=== PATIENT | male | born 1950 | race Caucasian/White ===

== ENCOUNTER 2023-06-24 12:19 | Outpatient (RCR) | payer MEDICARE, OTHER, SELFPAY | END 2023-06-24 23:59 | disposition home or self-care (01) | LOC: RPT 12:19 | PROVIDERS: ATTENDING PHYSICIAN Nurse Practitioner; FAMILY PHYSICIAN Family Medicine | DX: M54.2 Cervicalgia (principal); Z73.6 Limitation of activities due to disability; M62.81 Muscle weakness (generalized); R51.9 Headache, unspecified | CPT/HCPCS: 97162 ==

== ENCOUNTER 2023-07-10 14:06 | Outpatient (RCR) | payer MEDICARE, OTHER, SELFPAY | END 2023-07-16 13:50 | disposition home or self-care (01) | LOC: RPT 14:06 | PROVIDERS: ATTENDING PHYSICIAN Nurse Practitioner; FAMILY PHYSICIAN Family Medicine | DX: M54.2 Cervicalgia (principal); Z73.6 Limitation of activities due to disability | CPT/HCPCS: 97010; 97110; 97140 ==

== ENCOUNTER → 2023-08-27 07:11 | Outpatient (REF) | payer MEDICARE, OTHER, SELFPAY ==
[2023-08-27 07:36] LABS: % Eosinophils 4.5 % (0-6); % Immature Granulocytes 0.3 % (0-0.5); % Lymphocytes 25.6 % (20.5-51.1); % Monocytes 6.9 % (1.7-9.3); % Neutrophils 61.7 % (42.2-75.2); Absolute Basophils 0.1 10^3/uL (0-0.2); Absolute Eosinophils 0.3 10^3/uL (0-0.7); Absolute Lymphocytes 1.8 10^3/uL (1.2-3.4); Absolute Monocytes 0.5 10^3/uL (0.1-0.6); Absolute Neutrophils 4.2 10^3/uL (1.4-6.5); Hematocrit 37.2 % (39.0-52.0); Hemoglobin 12.2 g/dL (13.0-18.0); Mean Corp Hgb Conc. 32.8 g/dL (33.0-37.0); Mean Corpuscular Hgb 29.2 pg (27.0-31.0); Mean Platelet Volume 10.3 fL (7.4-10.4); Nucleated Red Blood Cells % 0 % (-); Platelet Count 278 10^3/uL (130-400); Red Blood Cell Count 4.18 10^6/uL (4.70-6.10); Red Cell Dist. Width 14.1 % (11.5-14.5); White Blood Cell Count 6.8 10^3/uL (4.8-10.8)
[2023-08-27 08:02] LABS: ALT (SGPT) 27 U/L (0-50); AST (SGOT) 30 U/L (17-59); Albumin 4.4 g/dl (3.5-5.0); Alkaline Phosphatase 86 U/L (38-126); Blood Urea Nitrogen 22 mg/dl (9-20); Calcium 9.3 mg/dl (8.4-10.2); Carbon Dioxide 26 mmol/L (22-30); Chloride 104 mmol/L (98-107); Glucose 125 mg/dl (70-99); Iron 60 ug/dl (49-181); Potassium 4.9 mmol/L (3.5-5.1); Sodium 137 mmol/L (135-145); Total Bilirubin 0.5 mg/dl (0.2-1.3); Total Cholesterol 149 mg/dl (50-199); Total Protein 7.6 g/dl (6.3-8.2); Triglyceride 160 mg/dl (10-149); Uric Acid 4.9 mg/dl (3.5-8.5); Very Low Density Lipoprotein 32 mg/dl (0-30); eGFR 37.02
[2023-08-27 08:03] LABS: HDL Cholesterol 53 mg/dl; LDL Cholesterol, Calculated 64 mg/dl
[2023-08-27 08:11] LABS: Percent Saturation 18 % (20-50); Total Iron Binding Capacity 331 ug/dl (261-462)
[2023-08-27 09:49] LABS: Glycohemoglobin (HgbA1c) 6.5 % (4.0-5.6)
== END ==
LOC: REG 07:11
PROVIDERS: ATTENDING PHYSICIAN Nurse Practitioner; FAMILY PHYSICIAN Family Medicine
DX: M25.531 Pain in right wrist (principal); E11.29 Type 2 diabetes mellitus with other diabetic kidney complication; N18.32 Chronic kidney disease, stage 3b; D50.9 Iron deficiency anemia, unspecified; E78.5 Hyperlipidemia, unspecified
CPT/HCPCS: 36415; 80053; 80061; 83036; 83540; 83550; 84550; 85025

== ENCOUNTER 2023-09-05 06:52 | Outpatient (RCR) | payer SELFPAY | END 2023-09-05 23:59 | disposition home or self-care (01) | LOC: ROT 06:52 | PROVIDERS: ATTENDING PHYSICIAN Family Medicine | DX: Z02.4 Encounter for examination for driving license (principal) ==

== ENCOUNTER 2023-10-07 10:29 | Inpatient (IN) | payer MEDICARE, OTHER, SELFPAY ==
[2023-10-07] VITALS (13 sets, daily range): BP systolic 122–186; BP diastolic 57–148; BMI 36.9
--- NOTE | 2023-10-07 08:56 | ED.GENMED ---
History of Present Illness
General
Chief Complaint: Change in Mental Status
Source: patient, spouse and ambulance crew
Exam Limitations: none
Time Seen by Provider: 10/07/23 08:40
Nursing documentation reviewed up to this point in time: agreed with
Travel History
Have you had any contact with someone who has COVID-19?: No
Do you have any symptoms of coronavirus? Fever > 100 degrees, chills, cough, shortness of breath, sore throat, loss of taste or smell, muscle aches, or headache?: No
History of Present Illness
History of Present Illness:
The patient is a 73-year-old man with a past medical history of high blood pressure, diabetes, high cholesterol, TIAs and mild memory issues, who presents by paramedics after his found him unresponsive and drooling in bed. His reports
that he woke up as normal, ate breakfast, showered and took his morning medication. She reports that he went back to bed to nap which is not unusual for him. When she went to check up on him, he was face down, lying in bed, drooling and difficult
to wake up. Patient reports that he was able to get him to open his eyes but he did not seem alert and was not speaking for several minutes. When paramedics arrived, patient started to talk and answer questions. Patient reports he just feels
extremely tired and has no memory of what happened. He keeps asking over and over how he got here. Patient denies any history of seizure disorder. Patient complains of mild headache since yesterday. He denies weakness and numbness. His
reports that in the past he has presented with mini strokes which have caused his balance to be off. Patient denies history of recent chest pain and shortness of breath. He denies recent cough and sore throat.
Past History
Past History
ED Past Medical History: HTN, Hypercholesterolemia, NIDDM, Psychiatric (Anxiety, Dementia) and Other (Anemia, diabetes, posterior reversible encephalopathy syndrome December 2020)
ED Past Surgical History: Orthopedic and Tonsilectomy
Social History
Tobacco: Former smoker
Alcohol: Former
Drug: None
Personal:
Living: with family
Employment: Employed
Family History
Family History: Other (Arthritis)
Review of Systems
Review of Systems
Allergies reviewed?: Yes
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
All Other Systems: ROS reviewed and negative except as documented in HPI and ROS
Constitutional: Reports fatigue
EENT: Reports no symptoms
Respiratory: Reports no symptoms
Cardiac: Reports syncope (Possible syncope)
ABD/GI: Reports no symptoms
: Reports no symptoms
Musculoskeletal: Reports no symptoms
Skin: Reports no symptoms
Neurological: Reports other
Endocrine: Reports no symptoms
Hematologic/Lymphatic: Reports no symptoms
Psychiatric: Reports no symptoms
Phy Exam
Physical Exam
Physical Exam:
Physical Exam
General: Patient appears awake, alert, but seems confused and keeps asking how he got here. Atraumatic appearing face and head.
Neck: supple. no meningeal signs. normal psoterior pharynx. Nontender C-spine
Heart: Tachycardic, regular
Lungs: no acute respiratory distress. clear bilaterally
Abdomen: normal bowel sounds. not tender. no CVAT
Neuro: alert and orientedx3. no focal neurological deficits. Face appears symmetric. Speech sounds normal. 5 out of 5 strength in bilateral extremities. No drift. Able to answer all questions
Skin: no rash
Psychiatric: well kept. interactive and cooperative
Extremities: no edema. no calf tenderness. negative homans. good distal pulses
Course
Orders/Labs/Results
Orders:
Orders
10/07/23
Electrocardiogram (*1) Stat
Comment: ALREADY DONE
10/07/23 08:41
CT Head W/o Iv Contrast Urgent
Comment:
Reason For Exam: increased confusion
Urinalysis Reflex To Culture Urgent
10/07/23 09:15
Complete Blood Count/With Diff Urgent
Comprehensive Metabolic Panel Urgent
Troponin I Urgent
10/07/23 10:01
Lorazepam [Ativan] 4 mg .ROUTE .STK-MED ONE
10/07/23 10:05
Lorazepam [Ativan] 2 mg IV NOW STA
10/07/23 10:20
Admit/Transfer Patient As Directed
Co-Sign Provider:
Level of Care: Inpatient admission
Assign to:: Telemetry
Physician / Group: Hospitalist
Diagnosis: Seizures
Reason for Telemetry: Medication for Arrhythmia
Date to Stop Telemetry: 10/09/23
Time to Stop Telemetry: 11:00
Reason for Hospitalization: .
Expected length of stay greater than two midnights?: Yes
ELOS- Estimated Length of Stay in days: 3
I certify the patient meets the requirements for IP care: Yes
10/07/23 10:21
Consult Neurology [NEUROLOGY CONSULT] Urgent
Consulting Provider: Luis Freeman
Was physician already notified: Yes
Reason for consult: seizure
10/07/23 10:22
CPK [Creatine Phosphokinase] Stat
Urine Drug Abuse Screen Stat
Lacosamide [Vimpat] 100 mg IV NOW STA
10/07/23 10:23
EEG Extend Monitor >1hr Routine
Reason for Exam: ? CPS
Neurology Consult:: DR. FREEMAN
10/07/23 20:00
Lacosamide [Vimpat] 100 mg IV Q12H
10/09/23 11:00
DC Protocol for Telemetry ONCE
Abnormal Lab Results
10/07/23
09:15
RBC 4.09 L 10^6/uL
(4.70-6.10)
Hgb 12.2 L g/dL
(13.0-18.0)
Hct 35.7 L %
(39.0-52.0)
Absolute Neuts (auto) 8.5 H 10^3/uL
(1.4-6.5)
Neutrophils % 80.3 H %
(42.2-75.2)
Lymphocytes % 11.8 L %
(20.5-51.1)
Sodium 131 L mmol/L
(135-145)
BUN 22 H mg/dl
(9-20)
Creatinine 1.8 H mg/dL
(0.7-1.3)
Glucose 154 H mg/dl
(70-99)
10/07/23 09:15
10/07/23 09:15
Vital Signs
Initial and Last Documented VS:
Initial Vital Signs
Temp Pulse Resp BP Pulse Ox
98.8 F 107 24 132/57 95
10/07/23 08:31 10/07/23 08:31 10/07/23 08:31 10/07/23 08:31 10/07/23 08:31
Last Documented Vital Signs
Temp Pulse Resp BP Pulse Ox
98.8 F 130 22 183/148 97
10/07/23 08:31 10/07/23 10:03 10/07/23 10:03 10/07/23 10:03 10/07/23 10:03
MDM/Problems Addressed
Differential Diagnosis Includes:
Syncope, postictal from seizure, hyponatremia, UTI
MDM/Problems Addressed:
Patient presents after being found unresponsive and more confused now by his
Chronic conditions affecting care: DM and HTN
Acute Exacerbation and/or Progression of Chronic Illness:
Patient is acutely hypertensive but only mildly
Acute Exacerbation and/or Progression of Chronic Illness: HTN
*Radiology
Radiology exam reviewed: radiology read reviewed
*Pulse Oximetry
Patient hypoxic: no
*EKG
Interpreted by ED Provider?: Yes
Interpretation: abnormal
Comparison EKG: no changes
Rate: tachycardiac
Rhythm: sinus
[place]: left axis deviation
Interval: normal interval
QRS Pattern: normal QRS
Ischemia: no ischemia
*Student Services Advisor Interpretation
Rate: bradycardiac
Interpretation: abnormal
Rhythm: sinus
*Critical Care Note
Total Time (30-74mins, 75-104mins- exclusive of procedures): 40 min
comment:
40 minutes of critical care given to the patient including my initial evaluation, reviewing blood work, CT report, EKG as well as supporting his airway while he sees in the ED, reassessing the patient, speaking to the hospitalist, neurologist and
counseling the family.
Data Reviewed
Review of Other/Old Records Reveals: Radiology Studies (MRI brain done in March 2022 showed no acute abnormalities and some chronic changes)
Patient Management
Discussion with other providers: Hospitalist and Other (Dr. Freeman)
Escalation/DeEscalation of care consider admission/obs:
Given recurrent seizures today, patient will be admitted for seizure management. Patient had a grand mal seizure in the ED witnessed by family and staff. Patient given 2 mg of Ativan and seizure subsided. Neurology and hospitalist made aware.
Patient maintaining his airway after being on nonrebreather and was suctioned.
ED Attending Note
-
Portions of this chart may have been created with voice recognition software.� Occasional wrong word or��sound alike� substitutions may have occurred due to the inherent limitations of voice recognition software.
Discharge Plan
Departure
Patient Disposition: Admit
Date of Disposition: 10/07/23
Time of Disposition: 10:23
Admit to: Telemetry
Presentation/result/management discussed w/ accepting MD/DO: Hospitalist
Patient with high blood pressure during this ER visit?: Yes
Condition: Fair
Covid-19: Not Applicable
Discharge Problem:
Post-ictal confusion, Recurrent seizures
Prescriptions:
No Action
atorvastatin 40 MG tablet
40 mg PO HS
aspirin 81 MG tablet,delayed release (DR/EC)
81 mg PO DAILY
allopurinol 300 MG tablet
300 mg PO DAILY
venlafaxine [Effexor XR] 150 MG capsule,extended release 24hr
150 mg PO DAILY
Patient Comments:
12/25/20- PT TAKES WITH VENLAFAXINE XR 75MG TO = 225MG DAILY
thiamine HCl (vitamin B1) 100 MG tablet
100 mg PO DAILY
cyanocobalamin (vitamin B-12) 1,000 MCG tablet
1,000 mcg PO DAILY 0RF
magnesium oxide 400 MG tablet
400 mg PO DAILY Qty: 60 0RF
risperidone 0.5 MG tablet
0.5 mg PO HS Qty: 30 0RF
prednisone 5 MG tablet
7.5 mg PO DAILY
Patient Comments:
Taper
spironolactone 25 MG tablet
25 mg PO DAILY
calcium carbonate 600 MG tablet
1,200 mg PO DAILY
cholecalciferol (vitamin D3) [Vitamin D3] 1,000 UNIT capsule
2,000 unit PO DAILY
amlodipine 5 MG tablet
5 mg PO DAILY
omeprazole 40 MG capsule,delayed release(DR/EC)
40 mg PO BID
Referrals:
Pillo Wilson MD [Family Provider] -
Interventions
Interventions:
*General Assessment Last Done: 10/07/23 08:39
*ED COVID-19 Vaccine History Last Done: 10/07/23 08:39
ED- Pulmonary Assessment Last Done: 10/07/23 08:39
ED- Neurological Assessment Last Done: 10/07/23 08:56
ED- Cardiac Assessment Last Done: 10/07/23 08:39
ED Swallowing Screen Last Done: 10/07/23 08:43
Discharge Date and Time
Print Language: SAMI
[2023-10-07 09:22] LABS: % Basophils 0.6 % (0-2); % Eosinophils 1.2 % (0-6); % Immature Granulocytes 0.4 % (0-0.5); % Lymphocytes 11.8 % (20.5-51.1); % Monocytes 5.7 % (1.7-9.3); % Neutrophils 80.3 % (42.2-75.2); Absolute Basophils 0.1 10^3/uL (0-0.2); Absolute Eosinophils 0.1 10^3/uL (0-0.7); Absolute Lymphocytes 1.2 10^3/uL (1.2-3.4); Absolute Monocytes 0.6 10^3/uL (0.1-0.6); Absolute Neutrophils 8.5 10^3/uL (1.4-6.5); Hematocrit 35.7 % (39.0-52.0); Hemoglobin 12.2 g/dL (13.0-18.0); Mean Corp Hgb Conc. 34.2 g/dL (33.0-37.0); Mean Corpuscular Hgb 29.8 pg (27.0-31.0); Mean Corpuscular Volume 87.3 fL (80.0-94.0); Mean Platelet Volume 10.1 fL (7.4-10.4); Nucleated Red Blood Cells % 0 % (-); Platelet Count 266 10^3/uL (130-400); Red Blood Cell Count 4.09 10^6/uL (4.70-6.10); Red Cell Dist. Width 13.3 % (11.5-14.5); White Blood Cell Count 10.5 10^3/uL (4.8-10.8)
[2023-10-07 09:42] LABS: ALT (SGPT) 29 U/L (0-50); AST (SGOT) 32 U/L (17-59); Albumin 4.3 g/dl (3.5-5.0); Alkaline Phosphatase 88 U/L (38-126); Blood Urea Nitrogen 22 mg/dl (9-20); Calcium 9.6 mg/dl (8.4-10.2); Carbon Dioxide 22 mmol/L (22-30); Chloride 103 mmol/L (98-107); Glucose 154 mg/dl (70-99); Potassium 4.7 mmol/L (3.5-5.1); Sodium 131 mmol/L (135-145); Total Bilirubin 0.6 mg/dl (0.2-1.3); Total Protein 7.3 g/dl (6.3-8.2)
[2023-10-07 09:45] LABS: Troponin I < 0.012 ng/ml
[2023-10-07] MEDS: ATIVAN 2 MG IV (10:04)
--- NOTE | 2023-10-07 10:20 | HPS.HSE ---
Family Physician
-
Family Physician: Pillo Wilson
Chief Complaint
-
Unresponsiveness/seizure
History of Present Illness
73 years old male was brought in from home by ambulance. History taken from the family, neurologist and ER physician. Patient was at his normal status today. He had breakfast and went to shower and then took a nap. His tried to wake him up
twice but he was not able to wake up. She called the ambulance. Upon arrival to the emergency room, initial assessment was possible syncopal episode but later that he had generalized convulsions consistent with seizure. Patient was given
intravenous lorazepam and neurologist was called to see the patient. Currently, patient is postictal and sedated. No history of fever, headache, acute illness in last 24 hours reported by the family. Scan of the head did not show acute findings.
Patient had history of cognitive impairment with alcoholism. According to family, last alcohol drink was around 5 years ago.
Medical History
Past Medical History
Past Medical History: Reports Other (Hypertension, gout, diabetes, hyperlipidemia, neurocognitive disorder, Gutierres's esophagus, history of alcoholism, diabetic neuropathy/nephropathy, and anxiety.)
Past Surgical History: Reports Other (No recent major surgery)
Social History
Unable to obtain full social history at this time due to: Acuity (Postictal and post Ativan administration)
Alcohol: Former
Personal:
Living: With Family
Employment: Retired
Family History
Family History: Not pertinent
Allergies / Home Medications
Allergies reflects when Allergies were last updated in [employer]
Home Medications with original date entered in [employer]
Allergy/Medication List:
Allergies
Allergy/AdvReac Type Severity Reaction Status Date / Time
red dye Allergy FLUSHING Verified 10/07/23 08:39
IN CHEST
Home Medications
aspirin 81 mg tablet,delayed release 81 mg PO DAILY Blood clot prevention/tx 10/05/11
atorvastatin 40 mg tablet 40 mg PO DAILY High cholesterol 10/05/11
allopurinol 300 mg tablet 300 mg PO DAILY Gout 04/19/19
thiamine HCl (vitamin B1) 100 mg tablet 100 mg PO DAILY Supplement 12/25/20
calcium carbonate 1,200 mg PO DAILY Supplement 08/07/21
omeprazole 40 mg capsule,delayed release 40 mg PO QPM Gastrointestinal issue 08/07/21
spironolactone 25 mg tablet 25 mg PO DAILY Fluid Retention/Swelling 08/07/21
acetaminophen 500 mg tablet (Tylenol Extra Strength) 500 mg PO DAILYPRN PRN mild pain 10/07/23
amlodipine 10 mg tablet 10 mg PO DAILY Heart Disease/Condition 10/07/23
cholecalciferol (vitamin D3) 50 mcg (2,000 unit) tablet 50 mcg PO DAILY Supplement 10/07/23
citalopram 20 mg tablet 20 mg PO DAILY Mental Health/Anxiety 10/07/23
cyanocobalamin (vitamin B-12) 1,000 mcg tablet 1,000 mcg PO DAILY Supplement 10/07/23
glipizide 2.5 mg tablet, extended release 24 hr 2.5 mg PO DAILY Diabetes 10/07/23
magnesium oxide 400 mg PO DAILY Supplement 10/07/23
risperidone 0.5 mg tablet 0.5 mg PO QPM Mental Health/Anxiety 10/07/23
Review of Systems
-
Unable to obtain full review of systems at this time due to: Other (Patient is sedated)
Physical Exam
Vital Signs
Vital Signs
Temp Pulse Resp BP Pulse Ox
98.8 F 130 22 183/148 97
10/07/23 08:31 10/07/23 10:03 10/07/23 10:03 10/07/23 10:03 10/07/23 10:03
Physical Exam
General: No Apparent Distress (sedated post Ativan )
HEENT: Anicteric, Moist mucous membranes and Atraumatic
Respiratory: Clear
Cardiac: S1/S2 and Tachycardia
GI: Soft and Non Tender
Rectal: No Maroon Stools
Genito-urinary: No Bloody Urine
Musculoskeletal: No Cyanosis and No Edema
Skin: No Jaundice
Neuro: Sedated
Psych: Other (sedated. )
Laboratory Results
-
10/07/23 09:15
10/07/23 09:15
Laboratory Results
Total Bilirubin 0.6 mg/dl (0.2-1.3) 10/07/23 09:15
AST 32 U/L (17-59) 10/07/23 09:15
ALT 29 U/L (0-50) 10/07/23 09:15
Alkaline Phosphatase 88 U/L (38-126) 10/07/23 09:15
Troponin I < 0.012 ng/ml 10/07/23 09:15
Impression/Plan
-
73 years old male was brought in from home for unresponsiveness but later was found to have sustained seizure episode
# New onset seizure
Differential diagnosis include idiopathic, metabolic unlikely infectious or traumatic
History of alcoholism but family reported sobriety more than 5 years
No fever. No headache. No leukocytosis. Negative troponin
Admit the patient to the hospital, IMU/telemetry
Continue with seizure precautions
Scan of the head no acute finding. Order MRI of the head
EEG study
As needed IV lorazepam for seizure activity
Patient was started on Vimpat intravenously
IV thiamine
nurse monitoring
Check vitamin B12, folate, TSH, CK
Control blood pressure to normotensive
Appreciate neurology input
# Hypertensive urgency
Blood pressure on arrival/ 132/ 57 but immediately after seizure went up to 186 /94
History of primary hypertension. Currently blood pressure 146/62 without administering the new medication
Continue with home medication and add as needed intravenous hydralazine for high systolic blood pressure
# Hyponatremia
Continue with IV fluid.
Monitor BMP
# History of diabetes hold oral glipizide while n.p.o.
Start the patient on insulin sliding scale
# History of anxiety, continue risperidone and citalopram.
# Hyperlipidemia. No changes intended.
# Chronic kidney disease stage IIIb. Creatinine on admission 1.8. Avoid nephrotoxic. Monitor renal function
# History of gout. Continue allopurinol
# History of neurocognitive impairment.
Total time spent to see the patient, examine the patient, review data and lab results, discuss treatment plan with patient, nursing staff, ER doctor around 75 minutes
--- NOTE | 2023-10-07 10:30 | CON.NEURO4 ---
Addendum entered and electronically signed by Luis Johnson MD 10/07/23 14:07:
Studies reviewed.
I have personally examined the patient. 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
My addenda:
Not awake, alert, interactive. No acute distress.
Speech mute
Follows requests difficulty. No tremor.
Extra-ocular movements grossly intact. Rapid eyelid closure bilaterally after passive eyelid opening
Facial movements full and symmetric. Hearing intact to normal conversational volume.
Normal UE movements bilaterally.
Neck: full ROM.
Chest: no dyspnea
Heart: no JVD
Ext: (-) Clubbing, (-) Cyanosis, (-) Edema
IMPRESSIONS/RECOMMENDATIONS:
Abrupt onset of change in mental status
Possible recurrence of posterior reversible encephalopathy syndrome, toxic metabolic disturbance producing seizure-like activity, structural abnormality intracranially of unclear etiology
Check EEG greater than 1 hour
Check MRI of brain with and without contrast
Check blood work for potential metabolic abnormalities
Provide thiamine
Remediate metabolic disturbances if same can be discovered
D/W patient / family / nursing
All questions answered.
Will continue to follow patient.
Original Note:
Consultation - Neurology 4
-
CONSULTING PHYSICIAN: Luis Johnson MD
REFERRING PHYSICIAN: ER/Dr. Holley
DICTATED BY: DONNA Marques
DATE/TIME OF REQUEST: 10/07/23
DATE/TIME OF CONSULTATION: 10/07/23
Reason for Consultation: Change in Mental Status
History of Present Illness:
This is a 73-year-old right-handed male who has presented to the hospital with report of being found unresponsive and drooling in bed. Patient is known to our Neurology service and is followed by Dr. Johnson as an outpatient for a history of alcohol
induced dementia, PRES, bilateral frontal lobe ischemic stroke, tiny occipital and temporal intraparenchymal microhemorrhages, low ferritin level, and orthostatic hypotension.
From previous inpatient evaluation by Dr. Johnson on 12/30/20:
'70 year-old male with abrupt onset headache and confusion in prior history of alcoholism as well as dementia with imaging concerning for posterior reversible encephalopathy syndrome (PRES). Headache has resolved and confusion is stable. His BP has
been elevated. No history of autoimmune conditions or use of immunosuppressants.�������
MRI showed:�������
1. TINY ACUTE INFARCTS in the superior aspect of both frontal lobes which are new from 12/26/2020.�������
2. Moderate number of tiny acute intraparenchymal microhemorrhages in the occipital and temporal lobes which are new from 12/26/2020.�������
3. Severe white matter disease and mild cortical perez matter disease in the occipital, temporal, and parietal lobes bilaterally which is nearly symmetric and associated with intraparenchymal edema�and sulcal effacement. The appearance is consistent
with MODERATE to SEVERE VASOGENIC EDEMA which�has mildly increased since 12/26/2020 and is new from 09/24/2020.�������
4. Moderate to severe white matter leukoaraiosis in the frontal and parietal lobes which is�unchanged from 09/24/2020.�������
5. Severe discogenic degenerative disease in the cervical spine with disc herniations and disc-osteophyte complexes causing mild spinal cord compression at C3/C4 and C4/C5.�The constellation of findings is consistent with POSTERIOR REVERSIBLE
ENCEPHALOPATHY SYNDROME (PRES). A severe infectious or inflammatory hemorrhagic encephalitis is an alternative diagnostic�possibility in the correct clinical setting.�������
EEG testing showed diffuse slowing but no epileptiform abnormalities�������
MRAs head and neck unremarkable.������
Recommendations:�������
-Would avoid the use of clonidine due to risk of PERIANESTHESIA MANAGER suppression in a patient with PERIANESTHESIA MANAGER changes and recent small sized acute ischemic infarcts�����
-Although most recent MRI of the brain looks worse and patient looks better clinically; ischemic and hemorrhagic strokes are asymptomatic, no indication for the transfer to [place]�������
-Goal of normotension�������
-Continue newly initiated ASA 81mg daily for secondary stroke prevention�������
-continue atorvastatin 40mg daily�������
-Follow low ferritin by rechecking blood level�������
-Presence of orthostatic hypotension by testing. 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 Continue to follow orthostatic blood pressures. Provide compression stockings. Consider addition of midodrine.��
-Prior history of dementia, Most likely alcohol induced; unclear association with PRES. Consider as outpatient medication for memory stabilization; has an established neurologist.'
(10/07/23) Patient is currently obtunded and unable to provide a history. His at bedside reports that the patient woke up in his usual state this morning. He ate breakfast, took his morning medications, and showered. He went back to bed to take
a nap, which is not unusual for him. She went upstairs to check on him and reports that she found him lying on his side, drooling, and she was unable to wake him up. She tried to wake him up again 15-20 minutes and he was able to open his eyes but
he was not speaking for several minutes, prompting her to call EMS. On arrival to the ER patient was awake and answering questions initially but had no recollection of this morning's events. His only complaint was feeling tired and having a mild
headache yesterday and today. CT head was obtained and is negative for any acute abnormalities. On return to his ER room, patient was noted to have generalized body shaking and became minimally responsive. Blood pressure was 186/94 during this
event. He received lorazepam 2mg IV x1 and lacosamide 100mg IV x1. He required suctioning and nonrebreather mask temporarily and he is currently noted to be having intermittent sinus tachycardia. Patient's family reports that over the past week he
has actually seemed improved from his baseline and more active, until today. He has not driven in several years and recently failed OT driving evaluation on 09/05/23 due to issues related to memory, attention, processing/reaction time. Although
Neurotrax test results have been improving, on 08/27/23 his global cognitive score was 104.4.
Past Medical History: Bilateral frontal ischemic stroke, occipital and temporal microhemorrhages, PRES, hypertensive encephalopathy, HTN, HLD, NIDDM, alcohol abuse, dementia, chronic anemia, low ferritin, GERD, Sjogren's, gout, depression,
anxiety, herpes zoster, colon polyps
Surgical History: Cervical spine surgery, left elbow repair, b/l RTC repair, tonsillectomy, colon polypectomy
Family History: Reviewed and noncontributory.
Social History: Former alcohol abuse, quit 2020. Former smoker. Denies illicit drug use.
Allergies: Red dye.
Home Medications: See below.
Review of Symptoms:
Per the HPI. I am unable to obtain a complete review of systems�because of patient's inability to provide history.
Physical Exam:
The patient is afebrile, abdomen is nondistended, breathing is unlabored, skin is warm and dry, no edema.
Neurologic Examination:
The patient is obtunded (received lorazepam 2mg), opens eyes to loud voice and pain. He is able to not able to follow commands or answer questions appropriately. On cranial nerve assessment, pupils are 3 mm bilateral, round and reactive to light
and accommodation. JACKIE visual coppola and EOMs, no apparent gaze deviation. There is no facial asymmetry at rest. JACKIE hearing. JACKIE tongue palate and uvula. Moves all extremities trace, spontaneously. JACKIE drift. No involuntary movement noted. Deep
tendon reflexes are 2+ bilateral upper and +3 patellar/crossed adducters, 1+ bilateral Achilles, and Babinski is absent bilaterally. JACKIE sensation, DBS, and coordination.
Lab Results: See below.
Neuro Imaging:
1. CT Head 10/07/23: There are no acute intracranial abnormalities. There is mild diffuse cortical atrophy with mild nonspecific white matter changes as described above.
Differentials for the patient's presentation include:
1. Generalized seizure with post-ictal state s/p lorazepam administration; possibly due to metabolic abnormality, structural brain abnormality, vs. unclear if returned to alcohol usage.
2. Hypertensive urgency.
Patient has the following risk factors for their symptoms: Hx alcohol abuse, hx stroke, HTN, dementia, PRES
Recommendations:
-Continue lacosamide 100mg IV q12hrs.
-Routine EEG ordered/pending.
-MRI brain with and w/o contrast pending.
-Checking blood work for metabolic abnormalities, see orders.
-Neurological checks per unit guidelines.
-Seizure precautions.
-PT/OT/ST evaluations.
-DVT prophylaxis.
-Will follow.
Discussed patient care with: Dr. Johnson, Dr. Holley, patient's family
Vital Signs and Labs
-
Vital Signs and Labs:
Vital Signs
Temp Pulse Resp BP Pulse Ox
98.8 F 99 27 146/62 92
10/07/23 08:31 10/07/23 10:45 10/07/23 10:45 10/07/23 10:29 10/07/23 10:45
Lab Results
10/07/23 09:15
10/07/23 09:15
Sodium 131 mmol/L (135-145) L 10/07/23 09:15
Potassium 4.7 mmol/L (3.5-5.1) 10/07/23 09:15
BUN 22 mg/dl (9-20) H 10/07/23 09:15
Glucose 154 mg/dl (70-99) H 10/07/23 09:15
Calcium 9.6 mg/dl (8.4-10.2) 10/07/23 09:15
Medications
-
Active Medications
Generic Name Dose Route Start Last Admin
Trade Name Freq PRN Reason Stop Dose Admin
Lacosamide 100 mg 10/07/23 20:00
Lacosamide (10 Mg/Ml) 200 Mg/20 Ml Vial IV 10/21/23 19:59
Q12H VIVIANA
Thiamine HCl 100 mg 10/07/23 13:00
Thiamine (100 Mg/Ml) 2 Ml Vial IV 10/09/23 08:01
DAILY VIVIANA
Home Medications
�Medication �Instructions �Recorded
aspirin 81 mg tablet,delayed 81 mg PO DAILY Blood clot 10/05/11
release prevention/tx
atorvastatin 40 mg tablet 40 mg PO DAILY High cholesterol 10/05/11
allopurinol 300 mg tablet 300 mg PO DAILY Gout 04/19/19
thiamine HCl (vitamin B1) 100 mg 100 mg PO DAILY Supplement 12/25/20
tablet
cyanocobalamin (vitamin B-12) 1,000 mcg PO DAILY 12/31/20
1,000 mcg tablet
magnesium oxide 400 mg PO DAILY #60 tabs 12/31/20
calcium carbonate 1,200 mg PO DAILY 08/07/21
omeprazole 40 mg capsule,delayed 40 mg PO QPM Gastrointestinal issue 08/07/21
release
spironolactone 25 mg tablet 25 mg PO DAILY 08/07/21
acetaminophen 500 mg tablet 500 mg PO DAILYPRN PRN mild pain 10/07/23
(Tylenol Extra Strength)
amlodipine 10 mg tablet 10 mg PO DAILY 10/07/23
cholecalciferol (vitamin D3) 50 50 mcg PO DAILY 10/07/23
mcg (2,000 unit) tablet
citalopram 20 mg tablet 20 mg PO DAILY 10/07/23
glipizide 2.5 mg tablet, extended 2.5 mg PO DAILY 10/07/23
release 24 hr
risperidone 0.5 mg tablet 0.5 mg PO QPM 10/07/23
[2023-10-07] MEDS: VIMPAT 100 MG IV ×2 (10:31→20:00)
[2023-10-07 11:14] LABS: Alcohol None Detected
[2023-10-07 12:13] LABS: Erythrocyte Sed Rate 32 mm/hour (0-20)
--- NOTE | 2023-10-07 12:30 | EEG.RPT ---
Electroencephalogram Report
Recording
Date of EE10/07/23
Type of EEG: Routine
Length of EEG recordin hour 5 minutes
Done with Video Recording: Yes
Patient Status: Outpatient
Recording Conditions: Awake and Drowsy
Hyperventilation Performed: No
Photic Stimulation Performed: Yes
Report
GREATER THAN 1 HOUR REPORT
METHODS:
A 21 channel digitized electroencephalogram (EEG) was performed at the bedside in the ICU. The 10/20 international system of electrode placement was used with ECG and lateral/vertical eye movements recorded. �Video was recorded. Duration was 1 hour
5 minutes.
QUALITY OF STUDY:
Good
ELECTROENCEPHALOGRAPHER IMPRESSION(S):
Background
Medium amplitude mix of theta and alpha frequencies
Posterior dominant rhythm of 8 Hz seen attenuates with eye opening
There were no significant asymmetries of background activity noted.
Sleep
Drowsiness seen
Photic Stimulation
Failed to activate the record
ECG
Normal sinus rhythm
LESS THAN 1 HOUR EEG INTERPRETATION:
Unremarkable EEG for age
CLINICAL CORRELATION:
Normal EEG study in awake and drowsy states. No seizures were recorded. A normal EEG does not rule out a diagnosis of epilepsy
Clinical correlation is advised.
[2023-10-07 12:58] LABS: TSH Reflex To Free T4 2.35 uIU/ml (0.47-4.68)
[2023-10-07 13:02] LABS: Ferritin 16.6 ng/ml (17.9-464.0)
[2023-10-07 13:33] LABS: Folate 14.2 ng/ml (2.76-20); Vitamin B12 > 1000 pg/ml (239-931)
[2023-10-07 14:23] LABS: Creatine Phosphokinase 333 U/L (55-170)
[2023-10-07] MEDS: FERRLECIT 110 MG IV (15:47)
[2023-10-07] MEDS: NSS 1000 IV (15:47)
[2023-10-07] MEDS: THIAMINE INJECTION 100 MG IV (15:48)
[2023-10-07 16:52] LABS: Glucose - Point of Care 133 mg/dl (70-99)
[2023-10-07] MEDS: RISPERDAL 0.5 MG PO (17:28)
[2023-10-07 19:19] LABS: Urine Albumin Trace (Neg - Trace); Urine Bilirubin Negative (Negative); Urine Character Clear (Clear); Urine Color Yellow; Urine Glucose 1+ (Negative); Urine Ketone Negative (Negative); Urine Leukocyte Negative (Negative); Urine Nitrite Negative (Negative); Urine Occult Blood 2+ (Negative); Urine Specific Gravity 1.015 (<1.030); Urine Urobilinogen Negative (Neg - 1+)
[2023-10-07 19:28] LABS: Urine Bacteria Moderate (Negative); Urine White Cell 0-2 /HPF (0-5)
[2023-10-07 19:34] LABS: Amphetamines Negative (Negative); Barbiturates Negative (Negative); Benzodiazepines Positive (Negative); Buprenorphine Negative (Negative); Cocaine Negative (Negative); Marijuana Negative (Negative); Methadone Negative (Negative); Methamphetamines Negative (Negative); Opiates Negative (Negative); Phencyclidine Negative (Negative); Tricyclic Antidepressants Negative (Negative)
[2023-10-07 19:52] LABS: Fentanyl, Urine Negative (Negative)
[2023-10-07] MEDS: HEPARIN 5000 UNITS SC (20:03)
--- NOTE | 2023-10-07 20:10 | PTCARENOTE ---
Received pt at change of shift. Pt very forgetful and has no recollection of why he is currently in the hospital; denies having seizures in the past and surprised to hear he had seizure activity today. at bedside and plans to stay the night.
states she notices pt 'twitching' from time to time but only lasts a moment. This RN has not witnessed the 'twitching'. Suction at bedside. Bed alarm active. Call hager in reach.
[2023-10-07 22:01] LABS: Glucose - Point of Care 150 mg/dl (70-99)
[2023-10-08 02:00] VITALS: BP 129/68
[2023-10-08 04:00] VITALS: BP 130/72
[2023-10-08 04:08] VITALS: BMI 39.5
[2023-10-08 04:58] LABS: % Basophils 0.5 % (0-2); % Eosinophils 0.5 % (0-6); % Immature Granulocytes 0.3 % (0-0.5); % Lymphocytes 17.6 % (20.5-51.1); % Monocytes 7.2 % (1.7-9.3); % Neutrophils 73.9 % (42.2-75.2); Absolute Lymphocytes 1.4 10^3/uL (1.2-3.4); Absolute Monocytes 0.6 10^3/uL (0.1-0.6); Absolute Neutrophils 5.8 10^3/uL (1.4-6.5); Hematocrit 32.9 % (39.0-52.0); Hemoglobin 11.5 g/dL (13.0-18.0); Mean Corpuscular Hgb 29.9 pg (27.0-31.0); Mean Corpuscular Volume 85.5 fL (80.0-94.0); Mean Platelet Volume 10.2 fL (7.4-10.4); Nucleated Red Blood Cells % 0 % (-); Platelet Count 248 10^3/uL (130-400); Red Blood Cell Count 3.85 10^6/uL (4.70-6.10); Red Cell Dist. Width 13.4 % (11.5-14.5); White Blood Cell Count 7.9 10^3/uL (4.8-10.8)
[2023-10-08 05:32] LABS: Blood Urea Nitrogen 19 mg/dl (9-20); Calcium 9.2 mg/dl (8.4-10.2); Carbon Dioxide 23 mmol/L (22-30); Chloride 106 mmol/L (98-107); Estimated Creatinine Clearance 55 ml/min; Glucose 124 mg/dl (70-99); Potassium 4.5 mmol/L (3.5-5.1); Sodium 133 mmol/L (135-145)
[2023-10-08] MEDS: NSS 1000 IV (05:33)
[2023-10-08 06:00] VITALS: BP 117/76
--- NOTE | 2023-10-08 06:11 | W.PN.HOSP.TC ---
Addendum entered and electronically signed by Sang Moore MD 10/08/23 11:20:
Addendum
Patient was seen by neurologist. Patient okay to go home with seizure precautions/no driving
Patient became agitated and did not want to stay longer in the hospital
Charge instructions given to the patient
Discussed with neurologist. Patient is known to Dr. Johnson from the office and he will follow-up with him in the office
dc home
Total discharge time spent to see the patient, examine the patient, review data and lab results, discuss discharge plan with patient, family, neurologist, nursing staff around 65 minutes
Original Note:
Today's Communication/Plan
-
.
Assessment / Plan
Assessment / Plan
Physical Exam
General: No Apparent Distress, obese.
HEENT: Anicteric, Moist mucous membranes and Atraumatic
Respiratory: Clear
Cardiac: S1/S2 and Tachycardia
GI: Soft and Non Tender
Rectal: No Maroon Stools
Genito-urinary: No Bloody Urine
Musculoskeletal: No Cyanosis and No Edema
Skin: No Jaundice
Neuro: awake, disoriented to events, followed simple commands
Psych: slightly agitated when talking about seizure
73 years old male was brought in from home for unresponsiveness but later was found to have sustained seizure episode
# New onset seizure
Differential diagnosis include idiopathic, metabolic unlikely infectious or traumatic
History of alcoholism but family reported sobriety more than 5 years
No fever. No headache. No leukocytosis. Negative troponin
No recurrent seizure over night. Family reported twitching like movement for months.
Patient did not recall events and got upset upon mentioning seizure event ( family reported angry like behavior at home at times)
Continue with seizure precautions, he refused to have bed pads.
Scan of the head no acute finding. Order MRI of the head
EEG study normal
As needed IV lorazepam for seizure activity
Patient was started on Vimpat intravenously
No need for IV thiamine.
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
High vitamin B12, normal folate & TSH
Slight elevated CK due to Seizure
Control blood pressure to normotensive
Appreciate neurology input
# Nontraumatic rhabdomyolysis secondary to seizure
# Hypertensive urgency, resolved
Resume oral medications
# Hyponatremia
Improved with IV fluid
# History of diabetes
Continue with insulin sign scale. Resume oral hypoglycemic agent
# History of anxiety, continue risperidone and citalopram.
# Hyperlipidemia. No changes intended.
# Chronic kidney disease stage IIIb. Creatinine on admission 1.8. Avoid nephrotoxic. Monitor renal function
Creatinine 1.6 today
# History of gout. Continue allopurinol
# History of neurocognitive impairment.
Per family, behavioral changes at home and angry like behavior
Add as needed Ativan
Total time spent to see the patient, examine the patient, review data and lab results, discuss treatment plan with patient,family, nursing staff around 55 minutes
Anticipated Discharge: 24 - 48 hours
Subjective/Interval History
-
Date of Service: October 08, 2023
he seems to deny seizure
Slightly agitated with staff/ family ( baseline at times)
Objective Data
-
Labs:
Laboratory Results
10/08/23
04:36
WBC 7.9
Hgb 11.5 L
Hct 32.9 L
Plt Count 248
Sodium 133 L
Potassium 4.5
Chloride 106
Carbon Dioxide 23
BUN 19
Creatinine 1.6 H
Glucose 124 H
Calcium 9.2
Vital Signs:
Vital Signs
Temp Pulse Resp BP Pulse Ox
98.2 F 70 19 117/76 94
10/08/23 04:08 10/08/23 06:00 10/08/23 06:00 10/08/23 06:00 10/08/23 00:00
I&O
10/06/23 10/07/23 10/08/23
06:59 06:59 06:59
Intake Total 1400 / 1400
Output Total 875 / 875
Balance 525 / 525
[2023-10-08 07:49] LABS: Glucose - Point of Care 134 mg/dl (70-99)
[2023-10-08 08:00] VITALS: BP 129/76
[2023-10-08] MEDS: VIMPAT 100 MG IV (08:25)
[2023-10-08] MEDS: GLUCOTROL 2.5 MG PO (08:27)
[2023-10-08] MEDS: ALDACTONE 25 MG PO (08:28)
[2023-10-08] MEDS: ASPIR LOW (ENTERIC COATED) 81 MG PO (08:29)
[2023-10-08] MEDS: ATIVAN 0.5 MG PO (08:29)
[2023-10-08] MEDS: NORVASC 5 MG PO (08:29)
[2023-10-08] MEDS: ZYLOPRIM 300 MG PO (08:30)
[2023-10-08] MEDS: THIAMINE INJECTION 100 MG IV (08:30)
[2023-10-08] MEDS: HEPARIN 5000 UNITS SC (08:31)
[2023-10-08] MEDS: CELEXA 20 MG PO (08:36)
--- NOTE | 2023-10-08 08:57 | PTCARENOTE ---
Pt very forgetfu asking same question over and over again. poor safety awareness . is alao forgetful . doesnot know if he takes his meds at home, suggested a pill box
--- NOTE | 2023-10-08 09:28 | W.PN.NEURO.1 ---
Today's Communication / Plan
-
Recommendations:
Continue newly initiated lacosamide 100mg, change from IV to PO q12hrs.
Report to [facility], reviewed with patient
Seizure precautions.
Neuro Assessment/Plan
Assessment
Neuro Imaging:
1. CT Head 10/07/23: There are no acute intracranial abnormalities. There is mild diffuse cortical atrophy with mild nonspecific white matter changes as described above.
2. MRI of brain with and without unremarkable
EEG unremarkable
Differentials for the patient's presentation include:
Generalized seizure with post-ictal state s/p lorazepam administration; possibly due to metabolic abnormality, structural brain abnormality, vs. unclear if returned to alcohol usage.
Hypertensive urgency.
Plan
Recommendations:
Continue newly initiated lacosamide 100mg, change from IV to PO q12hrs.
Report to [facility], reviewed with patient
Seizure precautions.
Will follow as outpatient.
Subjective/Objective
Subjective Data
Date of Service: October 08, 2023
No new events
Objective Data
Vital Signs
Temp Pulse Resp BP Pulse Ox
37.2 C 77 19 129/76 94
10/08/23 07:40 10/08/23 08:28 10/08/23 06:00 10/08/23 08:28 10/08/23 00:00
Lab Results
10/08/23 04:36
10/08/23 04:36
Sodium 133 mmol/L (135-145) L 10/08/23 04:36
Potassium 4.5 mmol/L (3.5-5.1) 10/08/23 04:36
BUN 19 mg/dl (9-20) 10/08/23 04:36
Glucose 124 mg/dl (70-99) H 10/08/23 04:36
Calcium 9.2 mg/dl (8.4-10.2) 10/08/23 04:36
Vitamin B12 > 1000 pg/ml (999-931) H 10/07/23 09:15
Ur Buprenorphine Negative (Negative) 10/07/23 19:12
Patient Allergies
red dye Allergy (Verified 10/07/23 08:39)
FLUSHING IN CHEST
Review of Systems
-
History Source: Patient
All other systems: Reviewed and negative
Physical Exam
-
General: No Apparent Distress and Appears Stated Age
Eyes: Round OU, [place] Conjunctivae and No Ptosis
HEENT: Anicteric and Moist Mucous Membranes
Neck: Full Range of Motion
Respiratory: No Dyspnea
GI: Non-distended
Skin: Unremarkable
Extremities: No Clubbing, No Cyanosis and No Edema
Psych: Intact Judgement/Insight
Extended Neurological Exam
Mood & Affect: Mood Unremarkable and Affect Unremarkable
Attention Span & Concentration: Awake, Alert and Interactive
Memory: Reduced
Tremor: Hand Tremor Absent and Head Tremor Absent
Involuntary Movement: None
Speech: Quality Unremarkable and Quantity Unremarkable
Cranial Nerve II: Left Eye: Pupillary Size Unremarkable and Visual Rueda Grossly Intact
Cranial Nerve II: Right Eye: Pupillary Size Unremarkable and Visual Rueda Grossly Intact
Cranial Nerves III, IV, : Extraocular Movement: Extraocular Movement Full in all Directions
Cranial Nerve VII: Facial Symmetry: Normal Facial Symmetry
Cranial Nerve VIII: Hearing: Unremarkable Hearing to Normal Conversational Volume
Pronator Drift: No Drift in Upper Extremities
Touch Sensation: Unremarkable
Coordination: [id number] Testing Unremarkable
Data Reviewed
-
MRI Head: Report Reviewed and Image Reviewed
EEG: Report Reviewed
Labs: Report Reviewed
Reviewed with: Nurse Practioner, Patient and Family
Old Records: Summarized
[2023-10-08 10:00] VITALS: BP 137/83
[2023-10-08 11:05] LABS: Glycohemoglobin (HgbA1c) 6.6 % (4.0-5.6)
--- NOTE | 2023-10-08 11:12 | W.DCSUMMARY ---
Discharge Summary
Discharge Data
Date of Admission: 10/07/23
Date of Discharge: 10/08/23
-
Pending Results: No
Hospital Course
73 years old male was brought in to the hospital by ambulance after found unresponsive with drooling episode. Upon arrival he was awake but showed confusion with weakness. Initial assessment was possible syncopal episode at home but later
developed generalized seizure activity with convulsions in the emergency room. He was given intravenous lorazepam and neurology was consulted. Patient was diagnosed with generalized seizure disorder with postictal status. No significant metabolic
abnormality or structural brain abnormality noticed on imaging studies of the brain including magnetic resonance imaging. Patient did not have fever or leukocytosis. Patient was followed by neurologist. He was started on Lacosamide 100 mg twice a
day. Patient responded to the treatment with no more seizures. Patient became awake and oriented but had memory impairment which was also consistent with underlying neuro- cognitive impairment that he had for some time. Patient was advised to
avoid driving. Instructions were given to patient, family including seizure precautions. Patient remained hemodynamically stable. Electroencephalogram was unremarkable. Patient was discharged home in a stable condition.
Discharge Plan
-
Patient Disposition: Home (Routine Discharge)
Discharge Diagnosis/Procedures: Generalized seizure disorder
Diet: As tolerated
Driving Restrictions: No driving
Referrals:
Luis Johnson MD [Active] - in one month
Pillo Wilson MD [Family Provider] - in one to two weeks
Prescriptions:
New
lacosamide 100 mg Tablet
100 mg PO BID Qty: 60 0RF
Continued
atorvastatin 40 MG tablet
40 mg PO DAILY
aspirin 81 MG tablet,delayed release (DR/EC)
81 mg PO DAILY
allopurinol 300 MG tablet
300 mg PO DAILY
thiamine HCl (vitamin B1) 100 MG tablet
100 mg PO DAILY
spironolactone 25 MG tablet
25 mg PO DAILY
calcium carbonate 600 MG tablet
1,200 mg PO DAILY
omeprazole 40 MG capsule,delayed release(DR/EC)
40 mg PO QPM
acetaminophen [Tylenol Extra Strength] 500 mg Tablet
500 mg PO DAILYPRN PRN (Reason: mild pain)
citalopram 20 mg Tablet
20 mg PO DAILY
amlodipine 10 mg Tablet
10 mg PO DAILY
glipizide 2.5 mg Tablet Extended Release 24hr
2.5 mg PO DAILY
cholecalciferol (vitamin D3) 50 mcg (2,000 unit) Tablet
50 mcg PO DAILY
risperidone 0.5 MG tablet
0.5 mg PO QPM
cyanocobalamin (vitamin B-12) 1,000 MCG tablet
1,000 mcg PO DAILY
magnesium oxide 400 MG tablet
400 mg PO DAILY
Discharge Orders:
Discharge Patient (As Directed); Ordered 10/08/23
Ordered By: Sang Moore
Discharge Date and Time
Print Language: SERBIAN
[2023-10-08 11:26] VITALS: PULSE 84
--- NOTE | 2023-10-08 11:47 | PTCARENOTE ---
Pt became increasingly agitated attempting to leave room , asking same questions again and again. Dr Moore tt pt dc to home wearing paper scubs and no shoes, as his clothes were soiled and taken home by family. Dc instructions to . Left via wc.
Pt was seen by PT/OT before he left.
--- NOTE | 2023-10-08 12:21 | CM ---
Notified by nurse Moncada after patient discharged, that patient was agitated and refused to stay any longer at hospital. He was discharged with who provided transport home.
Not seen by CM as patient declined.
--- NOTE | 2023-10-08 12:28 | CM ---
Notified by nurse Moncada after patient discharged, that patient was agitated and refused to stay any longer at hospital. He was discharged with who provided transport home.
Not seen by CM as patient was already discharged.
Unable to assess d/c needs.
Plan per nursing & MD - home today.
== END 2023-10-08 11:30 | disposition home or self-care (01) | DRG 101 ==
LOC: IMU 10:29
PROVIDERS: Nurse Practitioner Family; ADMITTING PHYSICIAN Internal Medicine; CONSULT PHYSICIAN Psychiatry & Neurology Neurology; EMERGENCY PHYSICIAN Emergency Medicine; FAMILY PHYSICIAN Family Medicine
DX: G40.409 Other generalized epilepsy and epileptic syndromes, not intractable, without status epilepticus (principal); E87.1 Hypo-osmolality and hyponatremia; Z87.891 Personal history of nicotine dependence; I16.0 Hypertensive urgency; E78.00 Pure hypercholesterolemia, unspecified; N18.32 Chronic kidney disease, stage 3b
CPT/HCPCS: 70450; 70553; 80048; 80053; 80306; 80307; 81003; 81015; 82077; 82550; 82607; 82728; 82746; 82962; 83036; 84443; 84484; 85025; 85652; 87086; 93005; 95813; 97116; 97163; 97167; 99291; A9575; C9254; J2916

== ENCOUNTER 2023-11-13 12:49 | Inpatient (IN) | payer MEDICARE, OTHER, SELFPAY ==
[2023-11-13] VITALS (14 sets, daily range): BP systolic 113–144; BP diastolic 60–81; BMI 36.7; BMI 36.6
--- NOTE | 2023-11-13 06:57 | ED.GENMED ---
History of Present Illness
General
Chief Complaint: Seizure
Time Seen by Provider: 11/13/23 06:46
Travel History
Have you had any contact with someone who has COVID-19?: No
Do you have any symptoms of coronavirus? Fever > 100 degrees, chills, cough, shortness of breath, sore throat, loss of taste or smell, muscle aches, or headache?: No
History of Present Illness
History of Present Illness:
HPI: At 5:50 AM today, the noted that he did not come down from bed so she checked on him. At that time he was not communicating but has his eyes open. He has had seizures in the past. He had urinary incontinence and I see evidence of tongue
bite johnson on exam. Blood sugar for EMS was in the 150s. Daughter notices increased amount of ticks yesterday. He ran out of his Vimpat over the last several days and was to see a doctor today for refill.
EXAM:
GENERAL: The patient appears somewhat postictal with some repetitive speech, sats on room air range from 90 to 97%
HEENT: Moist oral mucosa, tongue bite johnson noted on the right side
CARDIOVASCULAR: No murmurs, normal heart rate, regular rhythm, No chest wall tenderness
PULMONARY: No respiratory distress, breath sounds are slightly coarse
ABDOMEN: Soft with no peritoneal signs, no tenderness
NEUROLOGIC: Good strength all extremities, no coordination deficits, he can follow commands without difficulty
PSYCHIATRIC: Appears somewhat postictal with limited insight and judgment
EXTREMITIES: Nontender, no edema, moves all extremities equally
SKIN: No rash, no lesions
TIME OF INITIAL ENCOUNTER: 6:50 AM
NUMBER AND COMPLEXITY OF PROBLEMS ADDRESSED AT THE ENCOUNTER
� Chronic conditions affecting care: Has had seizure in the past, diabetes, high blood pressure, hyperlipidemia
� Acute Exacerbation and/or Progression of Chronic Illness: This is an acute but recurring problem
� Differential Diagnosis includes: Exacerbation of seizure disorder, hypoglycemia
AMOUNT AND/OR COMPLEXITY OF DATA TO BE REVIEWED AND ANALYZED
� I performed an independent evaluation of and my interpretation is:
EKG:
CT:
X-rays: I personally reviewed chest x-ray and see no clear sign of pneumonia/aspiration
Laboratory Studies: White count is normal, hemoglobin 12.4, creatinine 1.9, BNP 313, bicarb 18
Other:
� Review of other/old records: The patient had MRI last admission that showed no acute abnormality. He was started on lacosamide 100 mg twice a day. EEG was unremarkable at that time.
� Clinical information was obtained by an independent historian: I spoke to daughter and at bedside
� Prescriptions/Medications Considered but not given:
� Further testing considered but not performed:
RISK OF COMPLICATIONS AND/OR MORBIDITY OR MORTALITY OF PATIENT MANAGEMENT
� Social determinants of health affecting care: Lives at home
� Discussion with other providers: Discussed with Dr. Davis at 7:30 AM
� Escalation of care including admission/observation vs risk of discharge considered: It appears that the patient has seizure this morning. He ran out of Vimpat over the last few days. His blood sugar was slightly high for EMS.
I have ordered IV Vimpat. On reassessment at 9:25 AM, he still has some repetitive speech but is awake and interactive. He denies any shortness of breath but room air sats were as low as 91%. He was given a breathing treat. His room air sats
were as high as 98%. I updated daughter over the phone.
Past History
Past History
ED Past Medical History: HTN, Hypercholesterolemia, NIDDM, Psychiatric (Anxiety, Dementia) and Other (Anemia, diabetes, posterior reversible encephalopathy syndrome December 2020)
ED Past Surgical History: Orthopedic and Tonsilectomy
Social History
Tobacco: Former smoker
Alcohol: Former
Drug: None
Personal:
Living: with family
Employment: Employed
Family History
Family History: Other (Arthritis)
Phy Exam
Physical Exam
Physical Exam:
See HPI
Course
Orders/Labs/Results
Orders:
Orders
11/13/23 06:54
Lacosamide [Vimpat] 100 mg IV NOW STA
11/13/23 07:00
Basic Metabolic Panel Urgent
Complete Blood Count/With Diff Urgent
11/13/23 07:03
NT-proBNP Urgent
Comment: ADD ON
CR Chest Portable - 1 View Urgent
Comment:
Reason For Exam: mild hypoxia after seizure
Reason Study Needs to be Portable: Patient Unstable
11/13/23 07:40
Add On- LAB Urgent
Tests Added?: Pro BNP
11/13/23 08:46
Ipratropium/Albuterol Sulfate [Duoneb] 3 ml INH R NOW STA
Abnormal Lab Results
11/13/23
07:00
RBC 4.21 L 10^6/uL
(4.70-6.10)
Hgb 12.4 L g/dL
(13.0-18.0)
Hct 36.1 L %
(39.0-52.0)
MPV 10.9 H fL
(7.4-10.4)
Abs Immat Gran (auto) 0.1 H 10^3/uL
(0-0.05)
Immature Gran % 0.7 H %
(0-0.5)
Carbon Dioxide 18 L mmol/L
(22-30)
Creatinine 1.9 H mg/dL
(0.7-1.3)
Glucose 159 H mg/dl
(70-99)
11/13/23 07:00
11/13/23 07:00
Vital Signs
Initial and Last Documented VS:
Initial Vital Signs
Temp Pulse Resp BP Pulse Ox
98.3 F 101 18 118/67 90
11/13/23 06:34 11/13/23 06:34 06/06/24 06:34 11/13/23 06:34 11/13/23 06:34
Last Documented Vital Signs
Temp Pulse Resp BP Pulse Ox
97.8 F 71 17 124/68 96
11/13/23 09:32 11/13/23 09:32 11/13/23 09:32 11/13/23 09:32 11/13/23 09:32
*Critical Care Note
Total Time (30-74mins, 75-104mins- exclusive of procedures): Not Applicable
ED Attending Note
-
Portions of this chart may have been created with voice recognition software.� Occasional wrong word or��sound alike� substitutions may have occurred due to the inherent limitations of voice recognition software.
Discharge Plan
Departure
Patient Disposition: Home (Routine Discharge)
Date of Disposition: 11/13/23
Time of Disposition: 09:22
Patient with high blood pressure during this ER visit?: Yes
Discharge Problem:
Seizure
Instructions: Seizures, Adult (DC)
Prescriptions:
New
albuterol sulfate 90 mcg/actuation HFA aerosol inhaler
2 puff inhalation Q6H PRN (Reason: shortness of breath or wheezing) Qty: 8.5 0RF
No Action
atorvastatin 40 MG tablet
40 mg PO DAILY
allopurinol 300 MG tablet
300 mg PO DAILY
thiamine HCl (vitamin B1) 100 MG tablet
100 mg PO DAILY
spironolactone 25 MG tablet
25 mg PO DAILY
calcium carbonate 600 MG tablet
1,200 mg PO DAILY
omeprazole 40 MG capsule,delayed release(DR/EC)
40 mg PO QPM
acetaminophen [Tylenol Extra Strength] 500 mg Tablet
500 mg PO DAILYPRN PRN (Reason: mild pain)
citalopram 20 mg Tablet
20 mg PO DAILY
amlodipine 10 mg Tablet
10 mg PO DAILY
glipizide 2.5 mg Tablet Extended Release 24hr
2.5 mg PO DAILY
cholecalciferol (vitamin D3) 50 mcg (2,000 unit) Tablet
50 mcg PO DAILY
risperidone 0.5 MG tablet
0.5 mg PO QPM
cyanocobalamin (vitamin B-12) 1,000 MCG tablet
1,000 mcg PO DAILY
magnesium oxide 400 MG tablet
400 mg PO DAILY
lacosamide 100 mg Tablet
100 mg PO BID Qty: 60 0RF
Rx Instructions:
HAS NOT TAKEN, HASN'T BEEN ABLE TO GET SCRIPT FILLED
amoxicillin 875 mg Tablet
875 mg PO BID
benzonatate 100 mg Capsule
100 mg PO BID
albuterol sulfate 90 mcg/actuation Hfa Aerosol Inhaler
1 inh INHALATION Q4H PRN (Reason: shortness of breath)
Referrals:
Quinton Davis MD [Active] - Follow up in 2-3 days
Pillo Wilson MD [Family Provider] -
Activity Restrictions/Additional Instructions:
Basic blood work is unremarkable however the carbon dioxide (bicarb level is 18�this is commonly seen with seizures. Creatinine is slightly worse than prior but he does have chronic renal insufficiency. Another test for breathing was the BNP level
(test for heart failure)�this was unremarkable. Although not officially read by radiology, I see no clear sign for pneumonia on the x-ray. Dr. Davis said that he was sending a prescription for refill for Vimpat to your pharmacy.
Interventions
Interventions:
*Risk Screen - Suicide Last Done: 11/13/23 07:23
*General Assessment Last Done: 11/13/23 06:34
*Neglect/Abuse Screening Last Done: 11/13/23 07:23
ED- Fall Risk Assessment Last Done: 11/13/23 07:23
*ED COVID-19 Vaccine History Last Done: 11/13/23 07:23
ED- Cardiac Assessment Last Done: 06/06/24 07:23
ED- Neurological Assessment Last Done: 11/13/23 07:23
ED- Pulmonary Assessment Last Done: 11/13/23 07:23
Discharge Date and Time
Print Language: CHILEAN
[2023-11-13] MEDS: VIMPAT 100 MG IV (07:07)
[2023-11-13 07:20] LABS: % Basophils 0.7 % (0-2); % Eosinophils 5.3 % (0-6); % Immature Granulocytes 0.7 % (0-0.5); % Lymphocytes 30.4 % (20.5-51.1); % Monocytes 6.8 % (1.7-9.3); % Neutrophils 56.1 % (42.2-75.2); Absolute Basophils 0.1 10^3/uL (0-0.2); Absolute Eosinophils 0.4 10^3/uL (0-0.7); Absolute Immature Granulocytes 0.1 10^3/uL (0-0.05); Absolute Lymphocytes 2.1 10^3/uL (1.2-3.4); Absolute Monocytes 0.5 10^3/uL (0.1-0.6); Absolute Neutrophils 3.9 10^3/uL (1.4-6.5); Hematocrit 36.1 % (39.0-52.0); Hemoglobin 12.4 g/dL (13.0-18.0); Mean Corp Hgb Conc. 34.3 g/dL (33.0-37.0); Mean Corpuscular Hgb 29.5 pg (27.0-31.0); Mean Corpuscular Volume 85.7 fL (80.0-94.0); Mean Platelet Volume 10.9 fL (7.4-10.4); Nucleated Red Blood Cells % 0 % (-); Platelet Count 280 10^3/uL (130-400); Red Blood Cell Count 4.21 10^6/uL (4.70-6.10); Red Cell Dist. Width 13.4 % (11.5-14.5)
[2023-11-13 07:32] LABS: Blood Urea Nitrogen 18 mg/dl (9-20); Calcium 9.5 mg/dl (8.4-10.2); Carbon Dioxide 18 mmol/L (22-30); Chloride 103 mmol/L (98-107); Estimated Creatinine Clearance 45 ml/min; Glucose 159 mg/dl (70-99); Potassium 4.7 mmol/L (3.5-5.1); Sodium 137 mmol/L (135-145); eGFR 37.02
--- NOTE | 2023-11-13 07:36 | EDRN ---
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
bedside, the pt was received on RA, the pts p02 was 92% then dipped to 89%, this RN placed the pt on 3L NC and Sp02 came up to 98%, the pt has c/o SOB on exertion, the pts daughter states that the pt has had a cough for a while, NIH performed, the
pt is resting in stretcher in the lowest position, side rails up x2, call hager within reach, HOB elevated, will continue to monitor the pt closely
[2023-11-13 08:39] LABS: NT-proBNP 313 pg/ml
[2023-11-13] MEDS: DUONEB 3 ML INH (08:58)
--- NOTE | 2023-11-13 09:18 | EDRN ---
Dr. Cardenas currently at the pts bedside, provider took the pt off of 3L NC and sp02 dipped to 90%, breathing treatment administered and sp02 is from 91% to 95%, per the provider the pt is to say off of 02 currently, will continue to monitor
the pt closely
--- NOTE | 2023-11-13 09:21 | CON.NEURO4 ---
Consultation - Neurology 4
-
CONSULTING PHYSICIAN: Kristyn Davis
REFERRING PHYSICIAN: ER
DICTATED BY: Kristyn Davis
DATE/TIME OF REQUEST: 11/13/23
DATE/TIME OF CONSULTATION: 11/13/23
Reason for Consultation: Encephalopathy, history seizure, suspected seizure during sleep
History of Present Illness:
Patient is a 73-year-old male with a past ministry of epilepsy, previous ischemic stroke unspecified dementia, hypertension and diabetes presented to hospital after his had found him in bed poorly responsive when he did not come down to
breakfast in the morning like usual, and was poorly responsive with some liquid coming from the mouth. He was brought into the ED and he did have some mild amount of confusion which was improving.
Patient did run out of his usual seizure medication lacosamide for about the past 3 days he usually takes 100 mg twice daily. Last seizure was approximately in September of this year with a generalized tonic-clonic type seizure.
No recent illnesses.
After evaluation by myself the patient was actually being readied for discharge and then his noticed that he had an acute change in mental status with speech abnormality and confusion that was not significantly present previously. He was
evaluated by myself and had no focal motor deficits but did have speech difficulty and likely aphasia CT head noncontrast was obtained as well as stat EEG which did not show abnormalities.
Patient's memory difficulties date back to around 2018 or 2019 he did have some heavy alcohol use previously. He also had had ischemic bifrontal strokes in the past but did improve from this.
Past Medical History: Epilepsy, Bilateral frontal ischemic strokes, unspecified dementia, PRES, HTN, HLD, NIDDM, prior alcohol abuse chronic anemia, GERD, Sjogren's, gout, depression
Surgical History: Cervical spine surgery, left elbow repair, b/l RTC repair, tonsillectomy, colon polypectomy
Family History: Reviewed and noncontributory.
Social History: Former alcohol abuse, quit 2019. Former smoker. Denies illicit drug use.
Allergies: Red dye.
Home Medications: See below.
Review of Symptoms:
Patient denies any fever, headache, chest pain, shortness of breath, GI or symptoms.
Physical Exam:
Elderly man no acute distress no signs of head or neck trauma oropharynx is clear eyes are clear neck with no masses no meningismus heart rate regular breathing unlabored abdomen is obese soft nontender no lower extremity edema
Neurologic Examination:
On initial assessment the patient shows fluent spontaneous speech and shows some mild difficulty with more complex cognitive tasks like reciting the months of the year backwards, he could repeat 1 word in complex phrases. He showed mild
psychomotor slowing. On evaluation after mental status change patient has mixed expressive and receptive aphasia consistently saying the word green when asked to name my ear, he will obey commands intermittently, shows mild drowsiness. On cranial
nerve assessment, pupils are 3 mm bilateral, round and reactive to light and accommodation. Visual coppola are full. Extraocular movements are intact. Facial sensations are intact and bilaterally symmetrical, there is no facial asymmetry. Hearing is
intact bilaterally to normal conversation volume. Tongue palate and uvula are midline. Sternocleidomastoid strengths are full bilaterally. Motor strengths are 5/5 bilateral upper and lower extremities on medical research [place] scale. There is no
drift or involuntary movement noted. Deep tendon reflexes are 2+ bilateral upper and lower extremities and Babinski is absent bilaterally. Sensations of pain, touch, temperature and vibration are intact and bilaterally symmetrical. There was no
extinction noted on double simultaneous stimulation. Coordination is intact by finger to nose bilaterally.
Impressions
1. Likely an unwitnessed seizure occurring during sleep with the patient's finding him afterwards in a postictal state, presumed due to running out of recent lacosamide around 3 days ago.
2. Change in mental status with confusion and aphasia. I suspect that this may still be a postictal phenomenon which is prolonged given the patient's baseline dementia. Patient was outside the time window for thrombolytic treatment for acute
ischemic stroke and did not have other focal deficits highly suggestive of ischemic stroke, but ischemic stroke remains on the differential for cause of his mental status change. EEG obtained in the ED ruled out nonconvulsive seizure activity
3. Baseline mild to moderate dementia, probably in part due to history of alcoholism which can produce a Wernicke's/Korsakoff syndrome and also impart vascular/poststroke dementia given history of stroke
4. Epilepsy, currently uncontrolled without status epilepticus
5. History of bifrontal ischemic stroke December 2020
6. History of hypertensive encephalopathy/PRES December 2020
Recommendations:
1. Give aspirin 325 mg once now and start aspirin 81 mg tomorrow
2. Goal normotension
3. Neurologic checks NIH stroke scale
4. Small increase in lacosamide 150 mg twice daily for the time being, will likely resume 100 mg twice daily upon discharge
5. Check MRI of the brain and MRA of the head and neck
6. Check vitamin B12 folate
7. Okay to continue home Risperidone, otherwise minimize new sedating medications
Discussed with family at bedside
Discussed patient care with: Patient and his family at bedside, ER physician
--- NOTE | 2023-11-13 10:12 | EDRN ---
the pts approached this RN at the nurses station and stated, 'Something is wrong can you please help me', this RN entered the pts room and the pt was unable to answer questions and all the pt would say is, 'I am tired and weary i am tired i am
tired', the pt would not answer questions, this RN notified Dr. Cardenas, Neurology currently at the pts bedside speaking with the pt, the pt will be taken to CT
--- NOTE | 2023-11-13 10:30 | EDRN ---
the pt is back in the ED room #10, EEG being set up, VS WNL, the pt is currently still not answering questions, neurologist aware and Dr. Cardenas aware
--- NOTE | 2023-11-13 10:48 | EDRN ---
the pt pressed the call hager and this RN entered the pts room, the pts stated that he had to urinate, this RN removed the pts underwear and the pt attempted to urinate and stated that he would pee later, will continue to monitor the pt closely
--- NOTE | 2023-11-13 10:55 | EDRN ---
Dr. Davis from neurology is currently at the pts bedside
--- NOTE | 2023-11-13 12:15 | EEG.RPT ---
Electroencephalogram Report
Recording
Date of EE11/13/23
Length of EEG recordin minutes
Patient Status: Inpatient
Recording Conditions: Awake and Drowsy
Hyperventilation Performed: No
Photic Stimulation Performed: Yes
Hand Dominance: Unknown
Report
LESS THAN 1 HOUR EEG REPORT
LESS THAN 1 HOUR EEG INTERPRETATION:
Mildly abnormal EEG for age due to diffuse bihemispheric slowing
CLINICAL CORRELATION:
This study was suggestive of diffuse cortical dysfunction without focal abnormality. No seizures were recorded.
Clinical correlation is advised.
METHODS:
A 21 channel digitized electroencephalogram (EEG) was performed at the bedside. The 10/20 international system of electrode placement was used with ECG and lateral/vertical eye movements recorded. Duration 43 minutes
QUALITY OF STUDY:
Good
ELECTROENCEPHALOGRAPHER IMPRESSION(S):
Background
Medium amplitude background of mainly theta activity, alpha maximum
No normal posterior dominant rhythm seen
There were no significant asymmetries of background activity noted.
Sleep
Drowsiness present
Photic Stimulation
Failed to activate the record.
ECG
Normal sinus rhythm
--- NOTE | 2023-11-13 12:21 | EDRN ---
the pt is resting in stretcher in the lowest position, side rails up x2, call hager within reach, HOB elevated, VS WNL, EEG still currently in place, the pt is currently still not responding to questions appropriately, no s/s of distress currently,
the pts and daughter are asking to speak to the neurologist, this RN reached out to Dr. Davis who will come to the pts bedside, will continue to monitor the pt closely
--- NOTE | 2023-11-13 12:26 | EDRN ---
Dr. Davis currently at the pts bedside speaking with the pts
--- NOTE | 2023-11-13 12:57 | EDRN ---
this RN noticed that the pt was off of the monitor and this RN entered the pts room, Addis RN was at the pts bedside and stated that the pt pulled his monitor off and when Addis MYERS attempted to explain to the pt that using the urinal was safer than
getting out of bed right now, the pt pushed Elena RN and his out of the way and walked to the bathroom anyway, the pt was able to ambulate to the bathroom and back to the stretcher with no issues, the pt was placed back on the monitor and this RN
educated the pt on the use of the call hager, the pt stated that he would press the call hager however the pt stated that he would not use the urinal and the pt stated that he would continue to walk to the bathroom, this RN also explained to the pt
that he cannot push staff, the pt stated that, 'I don't care you people need to get out of my way and let me do what i want', this RN notified the provider, the pt also stated to this RN that he was hungry, this RN reached out to Dr. Mejia and
per the provider the pt can resume a regular diet, the pt is resting in stretcher in the lowest position, side rails up x2, call hager within reach, HOB elevated, no s/s of distress, will continue to monitor the pt closely
--- NOTE | 2023-11-13 13:19 | EDRN ---
admission orders processed, this RN notified pharmacy
[2023-11-13] MEDS: VIMPAT 50 MG PO (13:27)
[2023-11-13] MEDS: ASPIRIN 325 MG PO (13:28)
--- NOTE | 2023-11-13 14:20 | HPS.HSE ---
Family Physician
-
Family Physician: Pillo Wilson
Chief Complaint
-
Altered mental status
History of Present Illness
73-year-old male with Epilepsy, Bilateral frontal ischemic strokes, unspecified dementia, PRES, HTN, HLD, NIDDM, prior alcohol abuse chronic anemia, GERD, Sjogren's, gout, depression, now presents after found poorly responsive. Patient was found
by unresponsive as he did not come down for breakfast in the morning with usual. Patient had notable liquid coming from mouth. Upon arrival to the hospital, had mild confusion. Of note, has not taken lacosamide for about 3 days as he ran
out. Patient noted to have acute change in mental status with speech abnormality and confusion that was not previously present. Due to aphasia that was likely CT head was obtained as well as EEG�both did not show any significant abnormalities. Of
note also noted to be slightly hypoxic 90% serum creatinine noted to be approximately baseline, pending hemoglobin A1c. proBNP 313. UA pending. X-ray with no acute abnormalities. CT head with no acute abnormalities, mild bilateral frontal
atrophy.
Medical History
Past Medical History
Past Medical History: Reports Other (Hypertension, gout, diabetes, hyperlipidemia, neurocognitive disorder, Gutierres's esophagus, history of alcoholism, diabetic neuropathy/nephropathy, and anxiety.)
Past Surgical History: Reports Other (No recent major surgery)
Social History
Unable to obtain full social history at this time due to: Acuity (Postictal and post Ativan administration)
Alcohol: Former
Personal:
Living: With Family
Employment: Retired
Family History
Family History: Not pertinent
Allergies / Home Medications
Allergies reflects when Allergies were last updated in [facility].
Home Medications with original date entered in [facility]
Allergy/Medication List:
Allergies
Allergy/AdvReac Type Severity Reaction Status Date / Time
red dye Allergy FLUSHING Verified 10/07/23 08:39
IN CHEST
Home Medications
aspirin 81 mg tablet,delayed release 81 mg PO DAILY Blood clot prevention/tx 10/05/11
atorvastatin 40 mg tablet 40 mg PO DAILY High cholesterol 10/05/11
allopurinol 300 mg tablet 300 mg PO DAILY Gout 04/19/19
thiamine HCl (vitamin B1) 100 mg tablet 100 mg PO DAILY Supplement 12/25/20
calcium carbonate 1,200 mg PO DAILY Supplement 08/07/21
omeprazole 40 mg capsule,delayed release 40 mg PO QPM Gastrointestinal issue 08/07/21
spironolactone 25 mg tablet 25 mg PO DAILY Fluid Retention/Swelling 08/07/21
acetaminophen 500 mg tablet (Tylenol Extra Strength) 500 mg PO DAILYPRN PRN mild pain 10/07/23
amlodipine 10 mg tablet 10 mg PO DAILY Heart Disease/Condition 10/07/23
cholecalciferol (vitamin D3) 50 mcg (2,000 unit) tablet 50 mcg PO DAILY Supplement 10/07/23
citalopram 20 mg tablet 20 mg PO DAILY Mental Health/Anxiety 10/07/23
cyanocobalamin (vitamin B-12) 1,000 mcg tablet 1,000 mcg PO DAILY Supplement 10/07/23
glipizide 2.5 mg tablet, extended release 24 hr 2.5 mg PO DAILY Diabetes 10/07/23
magnesium oxide 400 mg PO DAILY Supplement 10/07/23
risperidone 0.5 mg tablet 0.5 mg PO QPM Mental Health/Anxiety 10/07/23
Review of Systems
-
Unable to obtain full review of systems at this time due to: Acuity
History Source: Patient
A 12 point ROS was completed and negative except as noted: Yes
Physical Exam
Vital Signs
Vital Signs
Temp Pulse Resp BP Pulse Ox
98.2 F 82 21 144/71 93
11/13/23 12:20 11/13/23 14:00 11/13/23 14:00 11/13/23 14:00 11/13/23 13:45
Physical Exam
General: Well Developed and Other (Drowsy, aphasia)
Respiratory: Clear
Cardiac: S1/S2 and Regular Rhythm
GI: Non Tender
Musculoskeletal: No Clubbing
Skin: Warm
Neuro: Awake, Alert and Oriented
Hematologic/Lymphatic: No Lymphadenopathy
Psych: Calm
Laboratory Results
-
11/13/23 07:00
11/13/23 07:00
Data Reviewed
-
Diagnostic Radiology: Image Personally Visualized and interpreted and Report Reviewed by me
CT Scan: Image Personally Visualized and interpreted and Report Reviewed by me
Lab Data: Labs Reviewed by me
Impression/Plan
-
IMPRESSION:
73-year-old male with Epilepsy, Bilateral frontal ischemic strokes, unspecified dementia, PRES, HTN, HLD, NIDDM, prior alcohol abuse chronic anemia, GERD, Sjogren's, gout, depression, now presents after found poorly responsive. Admitted for
possible seizure like activity.
PLAN:
#Unwitnessed seizure
#Acute on chronic metabolic encephalopathy
#Aphasia
#Dementia
� Has been not taking antibiotics for 3 days
� CT head unremarkable, EEG unremarkable
� Aspirin 325 mg now, aspirin 81 mg tomorrow
� Goal normotension
� NIH stroke scale
� Increase lacosamide to 150 mg twice daily, resume 100 mg twice daily upon discharge most likely
� MRI brain, qagan tayagungin of [place], MRA of head and neck check vitamin B12, folate
Continue risperidone
-F/u CK
#Hypoxia
- Is most likely secondary to pneumonitis, with possible aspiration due to seizure
� Continue to monitor respiratory status, hypoxia level
� Start Unasyn if decompensating
-Aspiration precautions
-Speech eval
# Hypertension
Resume oral medications
# History of diabetes
Continue with AISS
-Resume oral hypoglycemic agent
# History of anxiety, continue risperidone and citalopram.
# Hyperlipidemia. No changes
# Chronic kidney disease stage IIIb.
Monitor renal function
# History of gout. Continue allopurinol
# History of neurocognitive impairment.
Per family, behavioral changes at home and angry like behavior - most likely dementia -
-outpatient f/u
#DVT
-hsq
--- NOTE | 2023-11-13 14:26 | EDRN ---
this RN called the receiving unit and notified them that paper report was going to be tubed up
[2023-11-13 14:33] LABS: Glycohemoglobin (HgbA1c) 6.6 % (4.0-5.6)
[2023-11-13 14:57] LABS: Glucose - Point of Care 145 mg/dl (70-99)
[2023-11-13 16:43] LABS: Folate 9.9 ng/ml (2.76-20); Vitamin B12 > 1000 pg/ml (239-931)
--- NOTE | 2023-11-13 16:45 | PTOTSP ---
Speech Therapy Assessment
Coughing with dry solids noted today but may be related to baseline cough especially given no oral motor weakness, and observed prompt and coordinated oral manipulation and swallow onset during assessment.
Short Blessed Test score of 15 is consistent with dementia. Reduced verbal recall and complex reading comprehension also noted in this patient with known history of stroke/dementia and memory impairment.
Recommend
1. IDDSI 6/Thin Liquids
2. Meds with liquid as tolerated.
3. Continued ST and/or OT at time of discharge to obtain updated testing of cognitive communication status and appropriate recommendations for any follow up care that may be warranted.
[2023-11-13 16:47] LABS: Creatine Phosphokinase 348 U/L (55-170)
[2023-11-13 17:39] LABS: Glucose - Point of Care 111 mg/dl (70-99)
[2023-11-13] MEDS: HEPARIN 5000 UNITS SC (17:51)
[2023-11-13] MEDS: RISPERDAL 0.5 MG PO (20:47)
[2023-11-13] MEDS: VIMPAT 150 MG PO (20:47)
[2023-11-13 20:52] LABS: Glucose - Point of Care 144 mg/dl (70-99)
[2023-11-14] MEDS: HEPARIN SC (00:31)
[2023-11-14] MEDS: TESSALON PERLES 100 MG PO (02:14)
[2023-11-14 03:07] VITALS: BP 137/57
[2023-11-14 07:07] LABS: Hemoglobin 11.6 g/dL (13.0-18.0); Mean Corp Hgb Conc. 34.1 g/dL (33.0-37.0); Mean Corpuscular Hgb 29.7 pg (27.0-31.0); Mean Corpuscular Volume 87.2 fL (80.0-94.0); Mean Platelet Volume 10.8 fL (7.4-10.4); Platelet Count 239 10^3/uL (130-400); Red Cell Dist. Width 13.5 % (11.5-14.5); White Blood Cell Count 6.6 10^3/uL (4.8-10.8)
[2023-11-14 07:26] LABS: ALT (SGPT) 22 U/L (0-50); AST (SGOT) 30 U/L (17-59); Albumin 3.8 g/dl (3.5-5.0); Alkaline Phosphatase 76 U/L (38-126); Blood Urea Nitrogen 18 mg/dl (9-20); Calcium 9.4 mg/dl (8.4-10.2); Carbon Dioxide 21 mmol/L (22-30); Chloride 106 mmol/L (98-107); Estimated Creatinine Clearance 53 ml/min; Glucose 111 mg/dl (70-99); HDL Cholesterol 41 mg/dl; LDL Cholesterol, Calculated 69 mg/dl; Magnesium 2.3 mg/dl (1.6-2.3); Potassium 4.4 mmol/L (3.5-5.1); Sodium 136 mmol/L (135-145); Total Bilirubin 0.7 mg/dl (0.2-1.3); Total Cholesterol 134 mg/dl (50-199); Total Protein 6.8 g/dl (6.3-8.2); Triglyceride 123 mg/dl (10-149); Very Low Density Lipoprotein 24 mg/dl (0-30)
[2023-11-14 07:28] VITALS: BP 132/67
--- NOTE | 2023-11-14 07:35 | W.PN.NEURO.1 ---
Today's Communication / Plan
-
-Can stop aspirin I do not see that he has a strong indication for chronic antiplatelet therapy given his previous ischemic stroke occurred in the context of clear PRES in December 2020
-Go back to regular dosing Lacosamide 100 mg BID
-Mental status significantly improved
-No barriers to discharge at this point
Neuro Assessment/Plan
Assessment
73-year-old male with a past medical history of hypertension, CKD, previously significant alcohol use, dementia, epilepsy previous episode of PRES, associated with small ischemic infarct in the brain presented to hospital with poor responsiveness
after being found by his in bed the most likely represented a postictal state after unwitnessed seizure. Patient had recently ran out of antiseizure medications in the few days before this event.
After my initial evaluation the patient had sudden worsening to the point of having expressive and receptive aphasia. CT head noncontrast was obtained which was unremarkable and EEG did not show any non convulsive seizure.
Patient has a baseline dementia which is possibly multifactorial, probably in part due to history of significant alcohol use, also could be partially vascular based given history of PRES, hypertension, CKD and small ischemic infarcts as well as
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
MRI obtained yesterday does not show any new pathology no evidence of acute infarct masses hemorrhage or findings of PRES.
Most likely etiology for the patient's worsening mental status after ER observation was a postictal state in a patient with baseline dementia producing longer state of confusion after seizure.
Not seeing strong indication for being on chronic antiplatelet therapy as his previous ischemic stroke had occurred in the context of PRES.
Subjective/Objective
Subjective Data
Date of Service: November 14, 2023
No acute events overnight, patient feeling much better, denies headache, no complaints
Objective Data
Vital Signs
Temp Pulse Resp BP Pulse Ox
98.7 F 73 18 132/67 94
11/14/23 07:28 11/14/23 07:28 11/14/23 07:28 11/14/23 07:28 11/14/23 07:28
Lab Results
11/14/23 06:19
11/14/23 06:19
Sodium 136 mmol/L (135-145) 11/14/23 06:19
Potassium 4.4 mmol/L (3.5-5.1) 11/14/23 06:19
BUN 18 mg/dl (9-20) 11/14/23 06:19
Glucose 111 mg/dl (70-99) H 11/14/23 06:19
Calcium 9.4 mg/dl (8.4-10.2) 11/14/23 06:19
Jdy-T-Yltgsqeleng Pept 313 pg/ml 11/13/23 07:03
Mre-M-Exfwucxuwbc Pept Cancelled 11/13/23 07:03
LDL Cholesterol, Calc 69 mg/dl 11/14/23 06:19
Vitamin B12 > 1000 pg/ml (239-931) H 11/13/23 07:00
Patient Allergies
red dye Allergy (Verified 10/07/23 08:39)
FLUSHING IN CHEST
Review of Systems
-
History Source: Patient
All other systems: Reviewed and negative
Constitutional: No Symptoms
EENT: No Symptoms Reported
Respiratory: No Symptoms
Cardiac: No Symptoms
Abdomen/GI: No Symptoms
Genitourinary: No Symptoms
Musculoskeletal: No Symptoms
Skin: No Symptoms
Neuro: No Symptoms and See existing Neuro Note
Endocrine: No Symptoms
Hematologic / Lymphatic: No Symptoms
Allergy / Immunology: No Symptoms
Physical Exam
-
General: Comfortable
Eyes: No Ptosis
HEENT: Normocephalic
Neck: No Bruits Bilaterally
Respiratory: Clear to Auscultation
Cardiac: Regular Rhythm
GI: Normal Bowel Sounds
Skin: Unremarkable
Extremities: No Clubbing
Psych: Negative Agitated or Intact Judgement/Insight
Extended Neurological Exam
Attention Span & Concentration: Awake, Alert, Interactive and Other (Conversational, cognitive impairment apparent difficulty with complex tasks, able to obey multi step commands)
Memory: Reduced and Other (Little to no recall of presenting events and yesterday's issues)
Tremor: Hand Tremor Absent
Speech: Other (Previous aphasia resolved)
Cranial Nerve II: Left Eye: Pupillary Reactivity Unremarkable
Cranial Nerve II: Right Eye: Pupillary Reactivity Unremarkable
Cranial Nerves III, IV, : Extraocular Movement: Extraocular Movement Full in all Directions
Muscle Strength, Overall: Full Throughout
Muscle Bulk & Tone: Bulk Unremarkable
Data Reviewed
-
CT Head: Report Reviewed and Image Reviewed
MRA Head: Report Reviewed and Image Reviewed
EEG: Report Reviewed
[2023-11-14 07:45] LABS: Glucose - Point of Care 137 mg/dl (70-99)
[2023-11-14 07:56] LABS: TSH 1.02 uIU/ml (0.47-4.68)
[2023-11-14] MEDS: ASPIR LOW (ENTERIC COATED) 81 MG PO (08:19)
[2023-11-14] MEDS: GLUCOTROL XL (EXTENDED RELEASE) 2.5 MG PO (08:19)
[2023-11-14] MEDS: VITAMIN B1 100 MG PO (08:19)
[2023-11-14] MEDS: ALDACTONE 25 MG PO (08:20)
[2023-11-14] MEDS: VITAMIN B-12 1000 MCG PO (08:20)
[2023-11-14] MEDS: NORVASC 10 MG PO (08:20)
[2023-11-14] MEDS: PROTONIX 40 MG PO (08:20)
[2023-11-14] MEDS: CELEXA 20 MG PO (08:20)
[2023-11-14] MEDS: HEPARIN 5000 UNITS SC (08:20)
[2023-11-14] MEDS: VITAMIN D3 (cholecalciferol) 50 MCG PO (08:20)
[2023-11-14] MEDS: VIMPAT 150 MG PO (08:20)
[2023-11-14] MEDS: LIPITOR 40 MG PO (08:20)
[2023-11-14] MEDS: ZYLOPRIM 300 MG PO (08:20)
[2023-11-14 10:33] VITALS: BP 133/73; PULSE 77; PULSE 79; O2SAT 97
--- NOTE | 2023-11-14 10:43 | PTOTSP ---
PATIENT FUNCTIONING AT A MODIFIED INDEPENDENT/SUPERVISION LEVEL WHICH IS APPROPRIATE DUE TO PATIENT WITH DEMENTIA. AT HOME TO PROVIDE SUPERVISION. PATIENT WITH NO FURTHER SKILLED P.T. NEEDS AT THIS TIME. WILL DISCHARGE FROM P.T. SERVICES.
[2023-11-14 11:21] VITALS: BP 128/64
[2023-11-14 11:42] LABS: Glucose - Point of Care 163 mg/dl (70-99)
[2023-11-14] MEDS: NOVOLOG vial 0.0100000000000000002 UNITS SC (12:41)
--- NOTE | 2023-11-14 13:05 | W.PN.HOSP.TC ---
Addendum entered and electronically signed by Ronnell Mejia MD 11/14/23 15:45:
[id number]
Original Note:
Today's Communication/Plan
-
going back on lacosamide
dc with f/u with neurology, pcp
Assessment / Plan
Assessment / Plan
Physical Exam
General: Well Developed, sitting in chair
Respiratory: Clear
Cardiac: S1/S2 and Regular Rhythm
GI: Non Tender
Musculoskeletal: No Clubbing
Skin: Warm
Neuro: Awake, Alert and Oriented
Hematologic/Lymphatic: No Lymphadenopathy
Psych: Calm
73-year-old male with Epilepsy, Bilateral frontal ischemic strokes, unspecified dementia, PRES, HTN, HLD, NIDDM, prior alcohol abuse chronic anemia, GERD, Sjogren's, gout, depression, now presents after found poorly responsive. Admitted for
possible seizure like activity.
PLAN:
#Unwitnessed seizure
#Acute on chronic metabolic encephalopathy
#Aphasia
#Dementia
� Has been not taking antiepileptics for 3 days
� CT head unremarkable, EEG unremarkable
� MRIs so far negative
- Aspirin 325 mg now, aspirin 81 mg tomorrow
� Goal normotension
� NIH stroke scale
� resume 100 mg twice daily
� MRI brain, lummi of [place], MRA of head and neck check vitamin B12, folate
- Continue risperidone
#Hypoxia
-resolved
- Is most likely secondary to pneumonitis, with possible aspiration due to seizure
� Remains off o2, afebrile
# Hypertension
Resume oral medications
# History of diabetes
Continue with AISS
-Resume oral hypoglycemic agent
# History of anxiety, continue risperidone and citalopram.
# Hyperlipidemia. No changes
# Chronic kidney disease stage IIIb.
Monitor renal function
# History of gout. Continue allopurinol
# History of neurocognitive impairment.
Per family, behavioral changes at home and angry like behavior - most likely dementia -
-outpatient f/u
#DVT
-hsq
More than 30 minutes spent in discharge including
Final examination of the patient
Summarizing hospital stay
Instructions for continuing care to all relevant caregivers
Preparation of discharge records, prescriptions, and referral forms
Total time spent (35 in minutes):
Anticipated Discharge: Today
Subjective/Interval History
-
Date of Service: November 14, 2023
Much improved today
Objective Data
-
Labs:
Laboratory Results
11/14/23
06:19
WBC 6.6
Hgb 11.6 L
Hct 34.0 L
Plt Count 239
Sodium 136
Potassium 4.4
Chloride 106
Carbon Dioxide 21 L
BUN 18
Creatinine 1.6 H
Glucose 111 H
Calcium 9.4
Total Bilirubin 0.7
AST 30
ALT 22
Alkaline Phosphatase 76
Vital Signs:
Vital Signs
Temp Pulse Resp BP Pulse Ox
98.6 F 74 17 128/64 95
11/14/23 11:21 11/14/23 11:21 11/14/23 11:21 11/14/23 11:21 11/14/23 11:21
I&O
11/13/23 11/14/23 11/15/23
06:59 06:59 06:59
Intake Total 480 / 480
Balance 480 / 480
Review of Systems
-
History Source: Patient
All other systems: Not reviewed unless documented
Data Reviewed
-
CT Scan: Image personally visualized and interpreted and Report Reviewed by me
MRI: Image personally visualized and interpreted and Report Reviewed by me
Labs: Labs Reviewed by me
--- NOTE | 2023-11-14 13:29 | W.DS.TRANS ---
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
-
Discharge Instructions:
Discharge Diagnosis/Procedures
#Unwitnessed seizure
#Acute on chronic metabolic encephalopathy
Diet Low Cholesterol,Low Fat
Activity As tolerated
Instructions:
Stand-Alone Forms:
Changes to Home Medications: No
Discharge Medications:
DC Medications w/original date entered in [facility]
atorvastatin 40 mg tablet 40 mg PO DAILY High cholesterol 10/05/11
allopurinol 300 mg tablet 300 mg PO DAILY Gout 04/19/19
thiamine HCl (vitamin B1) 100 mg tablet 100 mg PO DAILY Supplement 12/25/20
calcium carbonate 1,200 mg PO DAILY Supplement 08/07/21
omeprazole 40 mg capsule,delayed release 40 mg PO QPM Gastrointestinal issue 08/07/21
spironolactone 25 mg tablet 25 mg PO DAILY Fluid Retention/Swelling 08/07/21
acetaminophen 500 mg tablet (Tylenol Extra Strength) 500 mg PO DAILYPRN PRN mild pain 10/07/23
amlodipine 10 mg tablet 10 mg PO DAILY Heart Disease/Condition 10/07/23
cholecalciferol (vitamin D3) 50 mcg (2,000 unit) tablet 50 mcg PO DAILY Supplement 10/07/23
citalopram 20 mg tablet 20 mg PO DAILY Mental Health/Anxiety 10/07/23
cyanocobalamin (vitamin B-12) 1,000 mcg tablet 1,000 mcg PO DAILY Supplement 10/07/23
glipizide 2.5 mg tablet, extended release 24 hr 2.5 mg PO DAILY Diabetes 10/07/23
magnesium oxide 400 mg PO DAILY Supplement 10/07/23
risperidone 0.5 mg tablet 0.5 mg PO HS Mental Health/Anxiety 10/07/23
albuterol sulfate 90 mcg/actuation aerosol inhaler 1 inh inhalation R Q4HPRN PRN shortness of breath 11/13/23
amoxicillin 875 mg tablet 875 mg PO BID Infection 11/13/23
benzonatate 100 mg capsule 100 mg PO TIDPRN PRN cough 11/13/23
lacosamide 100 mg tablet 100 mg PO BID 30 days #60 tabs 11/14/23
Home Medication Changes
no
Pending Results: No
[2023-11-14 15:40] VITALS: BP 140/77
== END 2023-11-14 17:35 | disposition home or self-care (01) | DRG 70 ==
LOC: 3 WEST ACU 12:49
PROVIDERS: ADMITTING PHYSICIAN Internal Medicine; CONSULT PHYSICIAN Student in an Organized Health Care Education/Training Program; EMERGENCY PHYSICIAN Emergency Medicine; FAMILY PHYSICIAN Family Medicine
DX: G93.41 Metabolic encephalopathy (principal); J69.0 Pneumonitis due to inhalation of food and vomit; I12.9 Hypertensive chronic kidney disease with stage 1 through stage 4 chronic kidney disease, or unspecified chronic kidney disease; N18.32 Chronic kidney disease, stage 3b; E78.00 Pure hypercholesterolemia, unspecified; Z91.199 Patient's noncompliance with other medical treatment and regimen due to unspecified reason; R56.9 Unspecified convulsions
CPT/HCPCS: 70450; 70544; 70548; 70553; 71045; 80048; 80053; 80061; 82550; 82607; 82746; 82962; 83036; 83735; 83880; 84443; 85025; 85027; 92523; 92526; 92610; 94640; 95812; 96374; 97162; 97166; 99285; A9585; C9254

== ENCOUNTER 2023-12-10 11:06 | Outpatient (RCR) | payer MEDICARE, OTHER, SELFPAY | END 2024-01-06 06:17 | disposition home or self-care (01) | LOC: RPT 11:06 | PROVIDERS: ATTENDING PHYSICIAN Nurse Practitioner Family; FAMILY PHYSICIAN Family Medicine | DX: M79.10 Myalgia, unspecified site (principal) | CPT/HCPCS: 97110; 97162 ==

== ENCOUNTER → 2023-12-15 10:25 | Outpatient (REF) | payer MEDICARE, OTHER, SELFPAY | LOC: RAD 10:25 | PROVIDERS: ATTENDING PHYSICIAN Physician Assistant; FAMILY PHYSICIAN Family Medicine | DX: M54.2 Cervicalgia (principal) | CPT/HCPCS: 72052 ==

== ENCOUNTER → 2024-01-08 12:00 | Outpatient (REF) | payer MEDICARE, OTHER, SELFPAY | LOC: REG 12:00 | PROVIDERS: ATTENDING PHYSICIAN Family Medicine | DX: D50.9 Iron deficiency anemia, unspecified (principal); R05.9 Cough, unspecified | CPT/HCPCS: 71046 ==

== ENCOUNTER → 2024-01-09 06:30 | Outpatient (REF) | payer MEDICARE, OTHER, SELFPAY ==
[2024-01-09 08:38] LABS: ALT (SGPT) 20 U/L (0-50); AST (SGOT) 27 U/L (17-59); Albumin 4.3 g/dl (3.5-5.0); Alkaline Phosphatase 101 U/L (38-126); Blood Urea Nitrogen 20 mg/dl (9-20); Calcium 9.5 mg/dl (8.4-10.2); Carbon Dioxide 22 mmol/L (22-30); Chloride 104 mmol/L (98-107); Glucose 142 mg/dl (70-99); HDL Cholesterol 52 mg/dl; Iron 68 ug/dl (49-181); LDL Cholesterol, Calculated 65 mg/dl; Potassium 4.2 mmol/L (3.5-5.1); Sodium 135 mmol/L (135-145); Total Bilirubin 0.5 mg/dl (0.2-1.3); Total Cholesterol 149 mg/dl (50-199); Total Protein 7.2 g/dl (6.3-8.2); Triglyceride 164 mg/dl (10-149); Very Low Density Lipoprotein 32 mg/dl (0-30)
[2024-01-09 08:48] LABS: Percent Saturation 24 % (20-50); Total Iron Binding Capacity 278 ug/dl (261-462)
[2024-01-09 09:11] LABS: Glycohemoglobin (HgbA1c) 6.6 % (4.0-5.6)
[2024-01-09 11:33] LABS: % Eosinophils 5.6 % (0-6); % Immature Granulocytes 0.3 % (0-0.5); % Lymphocytes 25.4 % (20.5-51.1); % Monocytes 6.4 % (1.7-9.3); % Neutrophils 61.3 % (42.2-75.2); Absolute Basophils 0.1 10^3/uL (0-0.2); Absolute Eosinophils 0.4 10^3/uL (0-0.7); Absolute Lymphocytes 1.8 10^3/uL (1.2-3.4); Absolute Monocytes 0.5 10^3/uL (0.1-0.6); Absolute Neutrophils 4.3 10^3/uL (1.4-6.5); Hematocrit 37.4 % (39.0-52.0); Hemoglobin 12.8 g/dL (13.0-18.0); Mean Corp Hgb Conc. 34.2 g/dL (33.0-37.0); Mean Corpuscular Hgb 30.3 pg (27.0-31.0); Mean Corpuscular Volume 88.4 fL (80.0-94.0); Mean Platelet Volume 11.1 fL (7.4-10.4); Nucleated Red Blood Cells % 0 % (-); Platelet Count 265 10^3/uL (130-400); Red Blood Cell Count 4.23 10^6/uL (4.70-6.10); Red Cell Dist. Width 13.3 % (11.5-14.5); White Blood Cell Count 7.1 10^3/uL (4.8-10.8)
== END ==
LOC: REG 06:30
PROVIDERS: ATTENDING PHYSICIAN Family Medicine
DX: E11.29 Type 2 diabetes mellitus with other diabetic kidney complication (principal); N18.32 Chronic kidney disease, stage 3b; E78.2 Mixed hyperlipidemia; D50.9 Iron deficiency anemia, unspecified
CPT/HCPCS: 36415; 80053; 80061; 83036; 83540; 83550; 85025

== ENCOUNTER → 2024-01-27 13:36 | Outpatient (REF) | payer MEDICARE, OTHER, SELFPAY ==
[2024-01-27 15:44] LABS: % Basophils 0.8 % (0-2); % Eosinophils 3.4 % (0-6); % Immature Granulocytes 0.4 % (0-0.5); % Lymphocytes 28.8 % (20.5-51.1); % Monocytes 6.1 % (1.7-9.3); % Neutrophils 60.5 % (42.2-75.2); Absolute Basophils 0.1 10^3/uL (0-0.2); Absolute Eosinophils 0.3 10^3/uL (0-0.7); Absolute Lymphocytes 2.1 10^3/uL (1.2-3.4); Absolute Monocytes 0.5 10^3/uL (0.1-0.6); Absolute Neutrophils 4.5 10^3/uL (1.4-6.5); Hemoglobin 13.2 g/dL (13.0-18.0); Mean Corp Hgb Conc. 34.7 g/dL (33.0-37.0); Mean Corpuscular Hgb 29.9 pg (27.0-31.0); Mean Platelet Volume 10.4 fL (7.4-10.4); Nucleated Red Blood Cells % 0 % (-); Platelet Count 278 10^3/uL (130-400); Red Blood Cell Count 4.42 10^6/uL (4.70-6.10); Red Cell Dist. Width 13.4 % (11.5-14.5); White Blood Cell Count 7.4 10^3/uL (4.8-10.8)
[2024-01-27 16:48] LABS: ALT (SGPT) 25 U/L (0-50); AST (SGOT) 30 U/L (17-59); Albumin 4.7 g/dl (3.5-5.0); Alkaline Phosphatase 89 U/L (38-126); Blood Urea Nitrogen 19 mg/dl (9-20); Calcium 9.8 mg/dl (8.4-10.2); Carbon Dioxide 25 mmol/L (22-30); Chloride 103 mmol/L (98-107); Glucose 86 mg/dl (70-99); HDL Cholesterol 55 mg/dl; LDL Cholesterol, Calculated 88 mg/dl; Potassium 4.4 mmol/L (3.5-5.1); Sodium 135 mmol/L (135-145); Total Bilirubin 0.6 mg/dl (0.2-1.3); Total Cholesterol 168 mg/dl (50-199); Total Protein 7.6 g/dl (6.3-8.2); Triglyceride 125 mg/dl (10-149); Very Low Density Lipoprotein 25 mg/dl (0-30)
== END ==
LOC: REG 13:36
PROVIDERS: ATTENDING PHYSICIAN Family Medicine; REFERRING PHYSICIAN Psychiatry & Neurology Neurology
DX: E11.29 Type 2 diabetes mellitus with other diabetic kidney complication (principal); N18.32 Chronic kidney disease, stage 3b; E78.2 Mixed hyperlipidemia; D50.9 Iron deficiency anemia, unspecified
CPT/HCPCS: 36415; 80053; 80061; 85025

== ENCOUNTER 2024-03-04 10:52 | Outpatient (RCR) | payer MEDICARE, OTHER, SELFPAY | END 2024-03-04 23:59 | disposition home or self-care (01) | LOC: RST 10:52 | PROVIDERS: ATTENDING PHYSICIAN Psychiatry & Neurology Neurology; FAMILY PHYSICIAN Family Medicine | DX: I63.529 Cerebral infarction due to unspecified occlusion or stenosis of unspecified anterior cerebral artery (principal); I69.318 Other symptoms and signs involving cognitive functions following cerebral infarction; I69.311 Memory deficit following cerebral infarction; I69.310 Attention and concentration deficit following cerebral infarction; I69.314 Frontal lobe and executive function deficit following cerebral infarction | CPT/HCPCS: 96125; 97129; 97130 ==

== ENCOUNTER 2024-03-31 09:58 | Outpatient (RCR) | payer MEDICARE, OTHER, SELFPAY | END 2024-03-31 23:59 | disposition home or self-care (01) | LOC: RPT 09:58 | PROVIDERS: ATTENDING PHYSICIAN Psychiatry & Neurology Neurology; FAMILY PHYSICIAN Family Medicine | DX: I69.318 Other symptoms and signs involving cognitive functions following cerebral infarction (principal); I69.311 Memory deficit following cerebral infarction; I69.310 Attention and concentration deficit following cerebral infarction; I69.314 Frontal lobe and executive function deficit following cerebral infarction; Z73.6 Limitation of activities due to disability; M50.30 Other cervical disc degeneration, unspecified cervical region | CPT/HCPCS: 97010; 97110; 97129; 97130; 97163; 97530; 97550; 97551 ==

== ENCOUNTER → 2024-06-08 12:47 | Outpatient (REF) | payer MEDICARE, OTHER, SELFPAY ==
[2024-06-08 13:28] LABS: % Eosinophils 4.3 % (0-6); % Immature Granulocytes 0.3 % (0-0.5); % Lymphocytes 28.2 % (20.5-51.1); % Monocytes 6.8 % (1.7-9.3); % Neutrophils 59.4 % (42.2-75.2); Absolute Basophils 0.1 10^3/uL (0-0.2); Absolute Eosinophils 0.3 10^3/uL (0-0.7); Absolute Monocytes 0.5 10^3/uL (0.1-0.6); Absolute Neutrophils 4.1 10^3/uL (1.4-6.5); Hematocrit 36.9 % (39.0-52.0); Hemoglobin 12.1 g/dL (13.0-18.0); Mean Corp Hgb Conc. 32.8 g/dL (33.0-37.0); Mean Corpuscular Hgb 29.4 pg (27.0-31.0); Mean Corpuscular Volume 89.8 fL (80.0-94.0); Mean Platelet Volume 10.4 fL (7.4-10.4); Nucleated Red Blood Cells % 0 % (-); Platelet Count 299 10^3/uL (130-400); Red Blood Cell Count 4.11 10^6/uL (4.70-6.10); Red Cell Dist. Width 13.4 % (11.5-14.5); White Blood Cell Count 6.9 10^3/uL (4.8-10.8)
[2024-06-08 13:56] LABS: ALT (SGPT) 22 U/L (0-50); AST (SGOT) 26 U/L (17-59); Albumin 4.4 g/dl (3.5-5.0); Alkaline Phosphatase 76 U/L (38-126); Blood Urea Nitrogen 19 mg/dl (9-20); Calcium 9.7 mg/dl (8.4-10.2); Carbon Dioxide 26 mmol/L (22-30); Chloride 100 mmol/L (98-107); Glucose 126 mg/dl (70-99); Potassium 4.5 mmol/L (3.5-5.1); Sodium 137 mmol/L (135-145); Total Bilirubin 0.4 mg/dl (0.2-1.3); Total Protein 7.4 g/dl (6.3-8.2)
[2024-06-08 14:29] LABS: TSH 1.36 uIU/ml (0.47-4.68)
== END ==
LOC: RAD 12:47
PROVIDERS: ATTENDING PHYSICIAN Physician Assistant
DX: R53.82 Chronic fatigue, unspecified (principal); M25.552 Pain in left hip; M54.2 Cervicalgia; I67.4 Hypertensive encephalopathy
CPT/HCPCS: 36415; 72052; 73502; 80053; 84443; 85025

== ENCOUNTER → 2024-08-09 07:34 | Outpatient (REF) | payer MEDICARE, OTHER, SELFPAY ==
[2024-08-09 09:21] LABS: % Basophils 0.7 % (0-2); % Eosinophils 3.3 % (0-6); % Immature Granulocytes 0.4 % (0-0.5); % Lymphocytes 23.4 % (20.5-51.1); % Monocytes 6.3 % (1.7-9.3); % Neutrophils 65.9 % (42.2-75.2); Absolute Basophils 0.1 10^3/uL (0-0.2); Absolute Eosinophils 0.3 10^3/uL (0-0.7); Absolute Lymphocytes 1.8 10^3/uL (1.2-3.4); Absolute Monocytes 0.5 10^3/uL (0.1-0.6); Hematocrit 40.4 % (39.0-52.0); Hemoglobin 13.3 g/dL (13.0-18.0); Mean Corp Hgb Conc. 32.9 g/dL (33.0-37.0); Mean Corpuscular Hgb 29.9 pg (27.0-31.0); Mean Corpuscular Volume 90.8 fL (80.0-94.0); Mean Platelet Volume 10.4 fL (7.4-10.4); Nucleated Red Blood Cells % 0 % (-); Platelet Count 329 10^3/uL (130-400); Red Blood Cell Count 4.45 10^6/uL (4.70-6.10); Red Cell Dist. Width 13.2 % (11.5-14.5); White Blood Cell Count 7.6 10^3/uL (4.8-10.8)
[2024-08-09 09:51] LABS: ALT (SGPT) 26 U/L (0-50); AST (SGOT) 25 U/L (17-59); Albumin 4.3 g/dl (3.5-5.0); Alkaline Phosphatase 85 U/L (38-126); Blood Urea Nitrogen 24 mg/dl (9-20); Calcium 9.8 mg/dl (8.4-10.2); Carbon Dioxide 27 mmol/L (22-30); Chloride 101 mmol/L (98-107); Glucose 134 mg/dl (70-99); HDL Cholesterol 53 mg/dl; Iron 88 ug/dl (49-181); LDL Cholesterol, Calculated 91 mg/dl; Potassium 5.1 mmol/L (3.5-5.1); Sodium 136 mmol/L (135-145); Total Bilirubin 0.6 mg/dl (0.2-1.3); Total Cholesterol 174 mg/dl (50-199); Total Protein 7.4 g/dl (6.3-8.2); Triglyceride 152 mg/dl (10-149); Very Low Density Lipoprotein 30 mg/dl (0-30); eGFR 39.25
[2024-08-09 10:00] LABS: Glycohemoglobin (HgbA1c) 6.3 % (4.0-5.6); Percent Saturation 29 % (20-50); Total Iron Binding Capacity 296 ug/dl (261-462)
[2024-08-09 10:17] LABS: Microalbumin, Random Urine 5.8 mg/dl (0.6-1.7); Microalbumin/creatinine Ratio 32.6 mg/g
== END ==
LOC: REG 07:34
PROVIDERS: ATTENDING PHYSICIAN Family Medicine; OTHER PHYSICIAN Internal Medicine
DX: E11.29 Type 2 diabetes mellitus with other diabetic kidney complication (principal); E78.2 Mixed hyperlipidemia; D50.9 Iron deficiency anemia, unspecified
CPT/HCPCS: 36415; 80053; 80061; 82043; 82570; 83036; 83540; 83550; 85025

== ENCOUNTER 2024-08-24 06:50 | Outpatient (RCR) | payer MEDICARE, OTHER, SELFPAY | END 2024-08-24 23:59 | disposition home or self-care (01) | LOC: RPT 06:50 | PROVIDERS: ATTENDING PHYSICIAN Family Medicine | DX: M50.30 Other cervical disc degeneration, unspecified cervical region (principal); Z73.6 Limitation of activities due to disability; F03.90 Unspecified dementia, unspecified severity, without behavioral disturbance, psychotic disturbance, mood disturbance, and anxiety; I69.319 Unspecified symptoms and signs involving cognitive functions following cerebral infarction; G40.909 Epilepsy, unspecified, not intractable, without status epilepticus | CPT/HCPCS: 97112; 97140; 97162; 97530 ==

== ENCOUNTER 2024-10-05 14:57 | Outpatient (RCR) | payer MEDICARE, OTHER, SELFPAY | END 2024-10-06 06:52 | disposition home or self-care (01) | LOC: RPT 14:57 | PROVIDERS: ATTENDING PHYSICIAN Family Medicine | DX: M50.30 Other cervical disc degeneration, unspecified cervical region (principal); Z73.6 Limitation of activities due to disability; F03.90 Unspecified dementia, unspecified severity, without behavioral disturbance, psychotic disturbance, mood disturbance, and anxiety; I69.319 Unspecified symptoms and signs involving cognitive functions following cerebral infarction; G40.909 Epilepsy, unspecified, not intractable, without status epilepticus | CPT/HCPCS: 97110; 97112; 97140 ==

== ENCOUNTER → 2024-11-03 08:45 | Outpatient (REF) | payer MEDICARE, OTHER, SELFPAY ==
--- NOTE | 2024-11-05 13:03 | EEG.RPT ---
Electroencephalogram Report
Recording
Date of EE11/03/24
Type of EEG: Ambulatory
Length of EEG recordin hours
Done with Video Recording: No
Patient Status: Outpatient
Recording Conditions: Awake, Drowsy and Asleep
Hyperventilation Performed: No
Photic Stimulation Performed: Yes
Report
24 HOUR EEG CLINICAL SUMMARY
24 HOUR EEG INTERPRETATION:
Abnormal EEG for age due to loss of normal background rhythms
CLINICAL CORRELATION:
This study was suggestive of mild bihemispheric cortical dysfunction without focal epileptiform abnormalities.
The patient�s logs indicated moments of twitching which were not associated with significant EEG changes. If clinical suspicion for seizure persists, additional prolonged EEG recording may be warranted.
Clinical correlation is advised.
METHODS:
A 21 channel digitized electroencephalogram (EEG) was initiated in the Clinical Neurophysiology Laboratory. The patient wore the device at home and returned after 24 hours for EEG lead and recorder removal. The 10/20 international system of
electrode placement was used with bipolar electrode montage recorded. ECG was monitored.
ELECTROENCEPHALOGRAPHER IMPRESSION(S):
Quality
Good
Background
In maximal wakefulness there were theta frequencies
There was a normal anterior-posterior voltage gradient. With eye opening the background activity changed. There were no significant asymmetries of background activity noted.
Sleep
Drowsiness present
Stage II sleep present
ECG:
Normal sinus rhythm
== END ==
LOC: EEG 08:45
PROVIDERS: ATTENDING PHYSICIAN Psychiatry & Neurology Neurology; FAMILY PHYSICIAN Family Medicine
DX: R56.9 Unspecified convulsions (principal)
CPT/HCPCS: 95708

== ENCOUNTER → 2024-12-13 09:33 | Outpatient (REF) | payer MEDICARE, OTHER, SELFPAY ==
[2024-12-13 10:52] LABS: Hematocrit 36.5 % (39.0-52.0); Hemoglobin 12.7 g/dL (13.0-18.0); Mean Corp Hgb Conc. 34.8 g/dL (33.0-37.0); Mean Corpuscular Volume 86.9 fL (80.0-94.0); Nucleated Red Blood Cells % 0 % (-); Platelet Count 267 10^3/uL (130-400); Red Cell Dist. Width 13.1 % (11.5-14.5)
[2024-12-13 11:07] LABS: Glycohemoglobin (HgbA1c) 6.9 % (4.0-5.6)
[2024-12-13 11:26] LABS: AST (SGOT) 24 U/L (17-59); Albumin 4.1 g/dl (3.5-5.0); Alkaline Phosphatase 79 U/L (38-126); Blood Urea Nitrogen 16 mg/dl (9-20); Carbon Dioxide 24 mmol/L (22-30); Chloride 106 mmol/L (98-107); Glucose 146 mg/dl (70-99); HDL Cholesterol 50 mg/dl; LDL Cholesterol, Calculated 84 mg/dl; Potassium 4.7 mmol/L (3.5-5.1); Sodium 136 mmol/L (135-145); Total Protein 7.1 g/dl (6.3-8.2); Very Low Density Lipoprotein 24 mg/dl (0-30); eGFR 45.21
[2024-12-13 11:37] LABS: ALT (SGPT) 32 U/L (0-50); Calcium 9.6 mg/dl (8.4-10.2)
== END ==
LOC: REG 09:33
PROVIDERS: ATTENDING PHYSICIAN Family Medicine
DX: E78.2 Mixed hyperlipidemia (principal); D50.9 Iron deficiency anemia, unspecified; E11.29 Type 2 diabetes mellitus with other diabetic kidney complication
CPT/HCPCS: 36415; 80053; 80061; 83036; 85025

== ENCOUNTER 2024-12-24 09:39 | Outpatient (RCR) | payer MEDICARE, OTHER, SELFPAY | END 2024-12-24 23:59 | disposition home or self-care (01) | LOC: RPT 09:39 | PROVIDERS: ATTENDING PHYSICIAN Physician Assistant Medical | DX: M54.2 Cervicalgia (principal); Z73.6 Limitation of activities due to disability; R20.0 Anesthesia of skin; I69.311 Memory deficit following cerebral infarction; I69.398 Other sequelae of cerebral infarction | CPT/HCPCS: 97110; 97162 ==

== ENCOUNTER → 2024-12-30 11:54 | Outpatient (REF) | payer MEDICARE, OTHER, SELFPAY | LOC: RAD 11:54 | PROVIDERS: ATTENDING PHYSICIAN Family Medicine | DX: G40.309 Generalized idiopathic epilepsy and epileptic syndromes, not intractable, without status epilepticus (principal); R05.3 Chronic cough | CPT/HCPCS: 71046 ==

== ENCOUNTER 2025-01-21 12:24 | Outpatient (RCR) | payer MEDICARE, OTHER, SELFPAY | END 2025-01-21 23:59 | disposition home or self-care (01) | LOC: RPT 12:24 | PROVIDERS: ATTENDING PHYSICIAN Physician Assistant Medical | DX: M54.2 Cervicalgia (principal); Z73.6 Limitation of activities due to disability; R20.0 Anesthesia of skin; I69.311 Memory deficit following cerebral infarction; I69.398 Other sequelae of cerebral infarction | CPT/HCPCS: 97010; 97110 ==

== ENCOUNTER 2025-02-03 02:27 | Inpatient (IN) | payer MEDICARE, OTHER, SELFPAY ==
[2025-02-02 22:05] VITALS: BP 156/81
[2025-02-02] MEDS: VENTOLIN NEBULES 10 MG INH (22:18)
[2025-02-02] MEDS: ATROVENT NEBULES 1 MG INH (22:19)
--- NOTE | 2025-02-02 22:21 | ED.GENMED ---
History of Present Illness
General
Chief Complaint: Breathing Problem
Source: patient
Exam Limitations: none
Time Seen by Provider: 02/02/25 22:11
History of Present Illness
History of Present Illness:
74yoM with a history of hypertension, hyperlipidemia, seizures, dementia presenting with his for evaluation of shortness of breath. History is limited due to increased work of breathing. reports shortness of breath and wheezing over the
past 2 days. He has no prior diagnosis of asthma or COPD but is prescribed albuterol inhaler as needed. He has been using his inhaler frequently over the past few days without any relief. He denies any fevers, chest pain, leg swelling. He was
diagnosed with 'a touch of pneumonia' last month by his PCP. He quit smoking 30 years ago.
Past History
Past History
ED Past Medical History: HTN, Hypercholesterolemia, NIDDM, Psychiatric (Anxiety, Dementia) and Other (Anemia, diabetes, posterior reversible encephalopathy syndrome December 2020)
ED Past Surgical History: Orthopedic and Tonsilectomy
Social History
Tobacco: Former smoker
Alcohol: Former
Drug: None
Personal:
Living: with family
Employment: Employed
Family History
Family History: Other (Arthritis)
Phy Exam
General Physical Exam
General Presentation: moderate distress
General Skin: warm and dry
General Habitus: elderly
General Mental: alert and anxious
ENT Exam
ENT Exam: normocephalic
Cardiovascular Exam
Cardiovascular Exam: regular rate/rhythm and no edema
Pulmonary Exam
Pulmonary Exam: generalized wheezing and other (Audible inspiratory and expiratory wheezes with conversational dyspnea)
Neurological Exam
Neurological Exam: alert
Conrado Coma Scale
Eye Opening: Spontaneous
Verbal Response: Oriented
Motor Response: Obeys Commands
GCS Total Score: 15
Skin Exam
Skin Exam: normal color and warm/dry
Psychiatric Exam
Psychiatric Exam: normal mood/affect
Scores
Heart Failure Risk
Heart Failure Risk Score: Not Applicable
Course
Orders/Labs/Results
Orders:
Orders
02/02/25 22:16
Electrocardiogram (*1) Urgent
Reason for Study: Shortness of Breath
Cardiac Monitoring- Treatment ONCE
EKG- Treatment ONCE
Albuterol Sulfate [Ventolin Nebules] 10 mg INH R NOW STA
Ipratropium Nebs [Atrovent Nebules] 1 mg INH R NOW STA
CXR Port [CR Chest Portable - 1 View] Stat
Comment:
Reason For Exam: SOB
Reason Study Needs to be Portable: Patient Unstable
02/02/25 22:29
Basic Metabolic Panel Urgent
Complete Blood Count/With Diff Urgent
Troponin I Urgent
02/02/25 22:32
COVID-19 Antigen Urgent
Source: Nasal Swab
Venous Blood Gas Urgent
%Oxygen/Room Air: room air
Influenza A+B Rapid Molecular Urgent
WILMA Source: Nasal Swab
Specimen Description:
02/03/25 00:20
Dexamethasone Sod Phosphate [Decadron] 10 mg IV NOW STA
Ipratropium/Albuterol Sulfate [Duoneb] 3 ml INH R NOW STA
Abnormal Lab Results
02/02/25 02/02/25
22:29 22:32
RBC 4.21 L 10^6/uL
(4.70-6.10)
Hgb 12.6 L g/dL
(13.0-18.0)
Hct 36.9 L %
(39.0-52.0)
Eosinophils % 7.3 H %
(0-6)
VBG pH 7.44 H
(7.32-7.43)
VBG pO2 160 H mmHg
(30-50)
Chloride 109 H mmol/L
(98-107)
Glucose 158 H mg/dl
(70-99)
02/02/25 22:29
02/02/25 22:29
Vital Signs
Initial and Last Documented VS:
Initial Vital Signs
Temp Pulse Resp BP Pulse Ox
98.1 F 104 24 156/81 95
02/02/25 22:05 02/02/25 22:05 02/02/25 22:05 02/02/25 22:05 02/02/25 22:05
Last Documented Vital Signs
Temp Pulse Resp BP Pulse Ox
98.1 F 95 20 134/70 96
02/02/25 22:05 02/03/25 00:15 02/03/25 00:15 02/03/25 00:00 02/03/25 00:15
MDM/Problems Addressed
Differential Diagnosis Includes:
74yoM here with SOB and wheezing x 2 days. No history of asthma/COPD. Treated for pneumonia about a month ago. Patient in moderate respiratory distress on initial exam with audible wheezing and tachypnea. Oxygen saturation 95% on room air.
Differential diagnosis includes but is not limited to: COPD exacerbation, bronchitis, bronchospasm, pneumonia, less likely pneumothorax
Initial ED plan: Hour long neb immediately ordered. Will check cardiac labs, VBG, COVID/flu swab, EKG, and stat portable chest x-ray.
*Pulse Oximetry
SaO2: 95
Oxygen Mode of Delivery: Room air
Patient hypoxic: no (95%)
*Critical Care Note
Total Time (30-74mins, 75-104mins- exclusive of procedures): Not Applicable
Update Note
Update Note:
Viral testing negative. pCO2 normal on VBG. Chest x-ray clear without infiltrates. Patient feeling improved after neb treatment although wheezing persists. IV Decadron and second neb treatment ordered. Will admit for further management.
ED Attending Note
-
Portions of this chart may have been created with voice recognition software.� Occasional wrong word or��sound alike� substitutions may have occurred due to the inherent limitations of voice recognition software.
Discharge Plan
Departure
Patient Disposition: Admit
Date of Disposition: 02/03/25
Time of Disposition: 00:25
Presentation/result/management discussed w/ accepting MD/DO: Hospitalist
Discharge Problem:
Acute bronchospasm
Prescriptions:
No Action
atorvastatin 40 MG tablet
40 mg PO DAILY
allopurinol 300 MG tablet
300 mg PO DAILY
thiamine HCl (vitamin B1) 100 MG tablet
100 mg PO DAILY
spironolactone 25 MG tablet
25 mg PO DAILY
calcium carbonate 600 MG tablet
1,200 mg PO DAILY
omeprazole 40 MG capsule,delayed release(DR/EC)
40 mg PO QPM
acetaminophen [Tylenol Extra Strength] 500 mg Tablet
500 mg PO DAILYPRN PRN (Reason: mild pain)
citalopram 20 mg Tablet
20 mg PO DAILY
amlodipine 10 mg Tablet
10 mg PO DAILY
glipizide 2.5 mg Tablet Extended Release 24hr
2.5 mg PO DAILY
cholecalciferol (vitamin D3) 50 mcg (2,000 unit) Tablet
50 mcg PO DAILY
risperidone 0.5 MG tablet
0.5 mg PO HS
cyanocobalamin (vitamin B-12) 1,000 MCG tablet
1,000 mcg PO DAILY
magnesium oxide 400 MG tablet
400 mg PO DAILY
amoxicillin 875 mg Tablet
875 mg PO BID
benzonatate 100 mg Capsule
100 mg PO TIDPRN PRN (Reason: cough)
albuterol sulfate 90 mcg/actuation Hfa Aerosol Inhaler
1 inh INHALATION R Q4HPRN PRN (Reason: shortness of breath)
lacosamide 100 mg Tablet
100 mg PO BID 30 Days Qty: 60 0RF
Rx Instructions:
HAS NOT TAKEN, HASN'T BEEN ABLE TO GET SCRIPT FILLED
Referrals:
Pillo Wilson MD [Family Provider, [facility]]
Interventions
Interventions:
*General Assessment Last Done: 02/02/25 22:05
ED- Cardiac Assessment Last Done: 02/02/25 22:33
ED- Pulmonary Assessment Last Done: 02/02/25 22:33
Discharge Date and Time
Print Language: IRISH
[2025-02-02 22:28] VITALS: BP 125/88
[2025-02-02 22:37] LABS: Venous Blood Gas B.E. 0.1 mmol/L (-4 to +4); Venous Blood Gas O2 Sat % 99.8 %
[2025-02-02 22:45] LABS: Hematocrit 36.9 % (39.0-52.0); Hemoglobin 12.6 g/dL (13.0-18.0); Mean Corp Hgb Conc. 34.1 g/dL (33.0-37.0); Mean Corpuscular Volume 87.6 fL (80.0-94.0); Nucleated Red Blood Cells % 0 % (-); Platelet Count 336 10^3/uL (130-400); Red Cell Dist. Width 13.2 % (11.5-14.5)
[2025-02-02 22:56] LABS: COVID-19 Antigen Negative (Negative)
[2025-02-02 23:00] VITALS: BP 126/67
[2025-02-02 23:01] LABS: Troponin I < 0.012 ng/ml
[2025-02-02 23:12] LABS: Blood Urea Nitrogen 15 mg/dl (9-20); Calcium 9.9 mg/dl (8.4-10.2); Carbon Dioxide 23 mmol/L (22-30); Chloride 109 mmol/L (98-107); Glucose 158 mg/dl (70-99); Sodium 138 mmol/L (135-145); eGFR 58.01
[2025-02-03] VITALS (9 sets, daily range): BP systolic 117–184; BP diastolic 55–91; BMI 36.2; BMI 35.8
[2025-02-03] MEDS: DUONEB 3 ML INH ×2 (00:25→07:39)
[2025-02-03] MEDS: DECADRON 10 MG IV (00:25)
--- NOTE | 2025-02-03 02:04 | HPS.HSE ---
Family Physician
-
Family Physician: Pillo Wilson
Chief Complaint
-
Cough
History of Present Illness
Patient is a 74y M with PMH significant for seizure disorder, dementia and PRES who presents to ED complaining of cough and chest congestion. History obtained from patient and his at the bedside. Patient developed cough and chest
congestion this evening after dinner. He had audible wheezing and hacking, minimally productive cough. He presented to the ED for further evaluation. Patient had similar symptoms about one month ago. He was seen by his PCP and tretaed for
suspected pneumonia at that time with improvement in his symptoms.
No formal diagnosis of emphysema / COPD. He does have prior smoking history - having quit about 30 years ago.
At the time of my examination patient is comfortable on room air and denies any SOB. He has persistent wheezing / abnormal breath sounds despite nebulizer treatments here in the ED.
Medical History
Past Medical History
Past Medical History: Reports Other
Additional Past Medical History:
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
Seizure Disorder
Hypertension
DM-II
CKD III
GERD / Gutierres's Esophagus
Dementia / Depression
History of Alcohol Use Disorder
Obesity
Past Surgical History: Reports Other
Additional Past Surgical History:
Bilateral Rotator Cuff Surgeries
T&A
C-Spine Surgery
Left Elbow Surgery
Social History
Tobacco: Former Smoker (Quit smoking 30 years ago. Approx 20 years total use.)
Alcohol: Former (History of alcohol overuse / abuse.)
Personal:
Living: With Family
Family History
Family History: Not pertinent
Allergies / Home Medications
Allergies reflects when Allergies were last updated in [employer].
Home Medications with original date entered in [employer]
Allergy/Medication List:
Allergies
Allergy/AdvReac Type Severity Reaction Status Date / Time
red dye Allergy FLUSHING Verified 02/02/25 22:04
IN CHEST
Home Medications
atorvastatin 40 mg tablet 40 mg PO DAILY High cholesterol 10/05/11
allopurinol 300 mg tablet 300 mg PO DAILY Gout 04/19/19
thiamine HCl (vitamin B1) 100 mg tablet 100 mg PO DAILY Supplement 12/25/20
calcium carbonate 1,200 mg PO DAILY Supplement 08/07/21
omeprazole 40 mg capsule,delayed release 40 mg PO QPM Gastrointestinal issue 08/07/21
spironolactone 25 mg tablet 25 mg PO DAILY Fluid Retention/Swelling 08/07/21
acetaminophen 500 mg tablet (Tylenol Extra Strength) 500 mg PO DAILYPRN PRN mild pain 10/07/23
amlodipine 10 mg tablet 10 mg PO DAILY Heart Disease/Condition 10/07/23
cholecalciferol (vitamin D3) 50 mcg (2,000 unit) tablet 50 mcg PO DAILY Supplement 10/07/23
citalopram 20 mg tablet 20 mg PO DAILY Mental Health/Anxiety 10/07/23
cyanocobalamin (vitamin B-12) 1,000 mcg tablet 1,000 mcg PO DAILY Supplement 10/07/23
glipizide 2.5 mg tablet, extended release 24 hr 2.5 mg PO DAILY Diabetes 10/07/23
magnesium oxide 400 mg PO DAILY Supplement 10/07/23
risperidone 0.5 mg tablet 0.5 mg PO HS Mental Health/Anxiety 10/07/23
albuterol sulfate 90 mcg/actuation aerosol inhaler 1 inh inhalation R Q4HPRN PRN shortness of breath 11/13/23
donepezil 5 mg tablet 5 mg PO HS 02/03/25
lacosamide 150 mg tablet 150 mg PO BID 02/03/25
Review of Systems
-
History Source: Patient and Family
A 12 point ROS was completed and negative except as noted: Yes
Constitutional: Denies Fever or Chills
EENT: Denies Sore Throat
Respiratory: Reports Cough and Trouble Breathing
Cardiac: Denies Chest Pain or Palpitations
Abdomen/GI: Denies Abdominal Pain, Nausea, Vomiting or Diarrhea
: Denies Dysuria or Frequency
Musculoskeletal: Denies Joint Pain or Edema
Neurological: Denies Dizzy or Headache
Psych: Reports Dementia
Physical Exam
Vital Signs
Vital Signs
Temp Pulse Resp BP Pulse Ox
98.1 F 91 20 131/73 92
02/02/25 22:05 02/03/25 01:30 02/03/25 01:30 02/03/25 01:00 02/03/25 01:30
Physical Exam
General: Other (74y M with flat affect in no acute distress.)
HEENT: Moist mucous membranes and PERRLA
Respiratory: Other (Scattered wheezes and coarse breath sounds throughout. Minimal improvement with cough.)
Cardiac: S1/S2 and Regular Rhythm; No Murmur
GI: Soft, Non Tender, Non Distended and Normal Bowel Sounds
Musculoskeletal: No Clubbing and No Cyanosis
Neuro: Awake and Alert; No Oriented
Laboratory Results
-
02/02/25 22:29
02/02/25 22:29
Laboratory Results
Total Bilirubin Cancelled 02/02/25 22:29
AST Cancelled 02/02/25 22:29
ALT Cancelled 02/02/25 22:29
Alkaline Phosphatase Cancelled 02/02/25 22:29
Troponin I < 0.012 ng/ml 02/02/25 22:29
Impression/Plan
-
A/P: Patient is a 74y M with PMH significant for HTN, DM-II, PRES and seizure disorder who presents to ED complaining of cough and chest congestion.
AE-COPD
Asthmatic Bronchitis
- Admit for further evaluation and treatment.
- Persistent wheezing despite nebs in the ED thus far.
- CXR unremarkable. COVID / flu negative.
- IV steroids, nebs, supportive care, etc.
- Follow for clinical improvement.
Benign Hypertension
- Stable. Continue usual meds with holding parameters.
DM-II
- Stable. Continue AM glipizide.
- Follow glucose and cover with SSI as needed.
- Update A1C.
PRES
Senile Dementia
Seizure Disorder
- Stable. No recent seizure activity.
- Continue current med regimen including lacosamide, mood stabilizing agents, etc.
- Follow for any agitation / delirium during acute stay.
DVT Prophylaxis: Lovenox
Code Status: Full
--- NOTE | 2025-02-03 04:27 | PTCARENOTE ---
Pt arrived on unit AAOx3, cooperative with admit process. Pt arrived with admission dx AE-COPD. Pt is assist x2, oriented to room, call hager within reach.
[2025-02-03] MEDS: SOLU-MEDROL PF 40 MG IV ×2 (05:26→14:32)
[2025-02-03 06:58] LABS: Hematocrit 35.1 % (39.0-52.0); Hemoglobin 11.9 g/dL (13.0-18.0); Mean Corp Hgb Conc. 33.9 g/dL (33.0-37.0); Mean Corpuscular Volume 88.6 fL (80.0-94.0); Platelet Count 307 10^3/uL (130-400); Red Cell Dist. Width 13.1 % (11.5-14.5)
[2025-02-03 07:19] LABS: Blood Urea Nitrogen 19 mg/dl (9-20); Calcium 10.1 mg/dl (8.4-10.2); Carbon Dioxide 23 mmol/L (22-30); Chloride 108 mmol/L (98-107); Estimated Creatinine Clearance 64 ml/min; Glucose 213 mg/dl (70-99); Potassium 4.5 mmol/L (3.5-5.1); Sodium 137 mmol/L (135-145); eGFR 58.01
--- NOTE | 2025-02-03 07:41 | W.PN.HOSP.TC ---
Today's Communication/Plan
-
PT/OT
Home O2 assessment
Discharge planning
Spoke with daughter
Assessment / Plan
Assessment / Plan
Physical Exam
General: Not in acute distress
HEENT: Moist mucous membranes
Respiratory: Scattered wheezes bilaterally
Cardiac: S1/S2 and Regular Rhythm
GI: Soft, Non Tender, Non Distended and Normal Bowel Sounds
Musculoskeletal: No Cyanosis. 2+ edema in the bilateral lower extremities.
Neuro: Awake and Alert
Assessment/Plan
74 y/o male with past medical history significant for smoking (quit about 30 years ago), seizure disorder, hypertension, Type 2 Diabetes Mellitus, dementia and PRES who presented to [facility] ED complaining of cough and chest congestion. History was
obtained from patient and his at the bedside. Patient developed cough and chest congestion on 02/02/25 evening evening after dinner. He had audible wheezing and hacking, minimally productive cough. He presented to the ED for further
evaluation. Patient had similar symptoms about one month prior to presentation. He was seen by his PCP and treated for suspected pneumonia at that time with improvement in his symptoms. No formal diagnosis of emphysema/COPD.
Suspected COPD -- PFTs consistent with COPD
Progressive Wheezing, started about 6 months ago
Dyspnea on Exertion past 1 year -- but no chest pain reported
Former Smoker
- Persistent wheezing despite nebs in the ED thus far.
- CXR unremarkable. COVID / flu negative.
- IV steroids switched to PO steroids
- Follow for clinical improvement.
- proBNP negative/unremarkable
- Echo unremarkable
- CT Chest PE study without PE but did show some RLL atelectasis
- Speech consult: as per Lucy Emmanuel, patient has no signs of oral/pharyngeal dysphagia. Continue regular/thin diet with reflux precautions. If concerned for silent aspiration please consult via video
swallow.
Bilateral Lower Extremity Edema
-Either inpatient or outpatient bilateral lower extremity ultrasound
Chronic Bilateral Hip Pain
-Has had x-rays outpatient, as per patient's daughter
-Will need orthopedics follow-up outpatient
Benign Hypertension
- Stable. Continue usual meds with holding parameters.
DM-II
- Stable. Continue AM glipizide.
- Follow glucose and cover with SSI as needed.
- Update A1C.
PRES diagnosed in 2020
History of mini ischemic and hemorrhagic CVA's
Senile Dementia
Seizure Disorder
- Stable. No recent seizure activity.
- Continue current med regimen including lacosamide, mood stabilizing agents, etc.
- Follow for any agitation / delirium during acute stay.
DVT Prophylaxis: Lovenox
Code Status: Full
On 02/03/25, I spoke to patient's daughter Gloria, and I answered all of her questions and concerns to satisfaction.
Anticipated Discharge: Within 24 hours
Subjective/Interval History
-
Date of Service: February 03, 2025
Patient was seen and examined. He reported he thinks his wheezing improved. He denied any chest pain.
Objective Data
-
Labs:
Laboratory Results
02/02/25 02/03/25
22:29 06:33
WBC 7.6 6.1
Hgb 12.6 L 11.9 L
Hct 36.9 L 35.1 L
Plt Count 336 307
Sodium 138 137
Potassium 4.5
Chloride 109 H 108 H
Carbon Dioxide 23 23
BUN 15 19
Creatinine 1.3 1.3
Glucose 158 H 213 H
Calcium 9.9 10.1
Total Bilirubin Cancelled
AST Cancelled
ALT Cancelled
Alkaline Phosphatase Cancelled
Vital Signs:
Vital Signs
Temp Pulse Resp BP Pulse Ox
98.6 F 101 20 117/64 96
02/03/25 03:21 02/03/25 05:17 02/03/25 03:21 02/03/25 05:17 02/03/25 03:21
[2025-02-03] MEDS: MUCINEX 600 MG PO ×2 (07:46→20:05)
[2025-02-03] MEDS: LIPITOR 40 MG PO (07:46)
[2025-02-03] MEDS: NORVASC 10 MG PO (07:46)
[2025-02-03] MEDS: VITAMIN B1 100 MG PO (07:46)
[2025-02-03] MEDS: GLUCOTROL XL (EXTENDED RELEASE) 2.5 MG PO (07:47)
[2025-02-03] MEDS: ALDACTONE 25 MG PO (07:47)
[2025-02-03] MEDS: CELEXA 20 MG PO (07:47)
[2025-02-03] MEDS: ZYLOPRIM 300 MG PO (07:48)
[2025-02-03] MEDS: VIMPAT 150 MG PO ×2 (07:48→20:05)
[2025-02-03 07:54] LABS: Glucose - Point of Care 233 mg/dl (70-99)
[2025-02-03] MEDS: NOVOLOG FLEXPEN-LOW RESISTANCE 2 UNITS SC (08:29)
--- NOTE | 2025-02-03 10:57 | PTOTSP ---
Dysphagia Evaluation
No signs of oral/pharyngeal dysphagia or aspiration. Patient w/ chronic dysphagia risk factors (i.e., dementia, CVAs, GERD/Gutierres's esophagus). CXR w/o PNA.
Recommend:
1. Regular, Thin liquids
2. Medications as best tolerated
3. General aspiration and reflux precautions
No further dysphagia therapy warranted. If concerned for silent aspiration, consider video swallow study.
[2025-02-03] MEDS: DUONEB INH (11:06)
--- NOTE | 2025-02-03 12:05 | CARDSERVLU ---
Echocardiogram with Lumason completed after protocol screening completed. Allergies verified.
Patent IV site: _Right arm 22 G PC ____
IV site flushed with 0.9% NaCl pre and post administration.
Diluted bolus method utilized to enhance visualization of ventricular luna.
Total volume given: _4___ mL
Patient tolerated all procedures well without complications.
Procedure and Lumason given by Esteban Feliciano distribution tech in [facility]
[2025-02-03 12:26] LABS: Glucose - Point of Care 254 mg/dl (70-99)
[2025-02-03 13:19] LABS: Glycohemoglobin (HgbA1c) 6.9 % (4.0-5.6)
[2025-02-03] MEDS: NOVOLOG FLEXPEN-LOW RESISTANCE 3 UNITS SC (13:24)
--- NOTE | 2025-02-03 13:25 | CON.PUL ---
Addendum entered and electronically signed by Jessica Lara DO 02/03/25 15:36:
Moderate obstruction noted on PFT, c/w moderate COPD
Will add inhalers and COPD education
OP FU can be arranged
Original Note:
Consultation
Consultation Request
Date/Time Consultation Requested: 02/03/25
Date/Time Consultation Performed: 02/03/25
Performing Provider: Marco
Reason for Consultation: Wheezing
Medical History
-
History of Present Illness:
Patient is a 74-year-old male with previous history of seizure disorder, dementia, CVA presenting to the ER with cough, chest congestion. He was notably wheezing and hacking with minimal productive cough following dinner. He had similar
symptoms about 1 month ago. He has no prior known history of lung disease, he was a former smoker of about 2 packs/day for 20 years and quit 30 years ago. He denies to me any any symptoms of shortness of breath or wheezing. He does not know why
he is being evaluated for wheezing.
Has never seen pulmonary in the past, denies any family history of known lung disease.
He feels he may snore but has never been diagnosed with obstructive sleep apnea.
Past Medical History
Past Medical History: Other (see list below)
Social History
Tobacco: Former Smoker
Alcohol: None
Drug: None
Family History
Family History: Reviewed & Not Pertinent
Allergies / Home Medications
Allergies
Allergy/AdvReac Type Severity Reaction Status Date / Time
red dye Allergy FLUSHING Verified 02/02/25 22:04
IN CHEST
Home Medications
�Medication �Instructions �Recorded �Confirmed �Last Taken �Type
atorvastatin 40 mg tablet 40 mg PO DAILY High cholesterol 10/05/11 02/03/25 11/12/23 History
allopurinol 300 mg tablet 300 mg PO DAILY Gout 04/19/19 02/03/25 11/12/23 History
thiamine HCl (vitamin B1) 100 mg 100 mg PO DAILY Supplement 12/25/20 02/03/25 11/12/23 History
tablet
calcium carbonate 1,200 mg PO DAILY Supplement 08/07/21 02/03/25 11/12/23 History
omeprazole 40 mg capsule,delayed 40 mg PO QPM Gastrointestinal issue 08/07/21 02/03/25 11/12/23 History
release
spironolactone 25 mg tablet 25 mg PO DAILY Fluid 08/07/21 02/03/25 11/12/23 History
Retention/Swelling
acetaminophen 500 mg tablet 500 mg PO DAILYPRN PRN mild pain 10/07/23 02/03/25 11/12/23 History
(Tylenol Extra Strength)
amlodipine 10 mg tablet 10 mg PO DAILY Heart 10/07/23 02/03/25 11/12/23 History
Disease/Condition
cholecalciferol (vitamin D3) 50 50 mcg PO DAILY Supplement 10/07/23 02/03/25 11/12/23 History
mcg (2,000 unit) tablet
citalopram 20 mg tablet 20 mg PO DAILY Mental 10/07/23 02/03/25 11/12/23 History
Health/Anxiety
cyanocobalamin (vitamin B-12) 1,000 mcg PO DAILY Supplement 10/07/23 02/03/25 11/12/23 History
1,000 mcg tablet
glipizide 2.5 mg tablet, extended 2.5 mg PO DAILY Diabetes 10/07/23 02/03/25 11/12/23 History
release 24 hr
magnesium oxide 400 mg PO DAILY Supplement 10/07/23 02/03/25 11/12/23 History
risperidone 0.5 mg tablet 0.5 mg PO HS Mental Health/Anxiety 10/07/23 02/03/25 11/07/23 History
albuterol sulfate 90 mcg/actuation 1 inh inhalation R Q4HPRN PRN 11/13/23 02/03/25 11/12/23 History
aerosol inhaler shortness of breath
donepezil 5 mg tablet 5 mg PO HS 02/03/25 02/03/25 Unknown History
lacosamide 150 mg tablet 150 mg PO BID 02/03/25 02/03/25 Unknown History
Review of Systems
-
History Source: Patient
All other systems: Negative unless noted
Vitals / Labs / Diagnostic Testing
Vital Signs
Temp Pulse Resp BP Pulse Ox
98.6 F 88 16 132/70 99
02/03/25 07:15 02/03/25 07:39 02/03/25 07:39 02/03/25 07:15 02/03/25 07:39
Lab Data
02/03/25 06:33
02/03/25 06:33
Microbiology
02/02/25 22:32 Nasal Swab Influenza Types A & B (HERB) - Final
Negative for Influenza A & B, NAAT
Negative results must be combined with clinical observations
and patient history.
Nucleic Acid Amplification test (NAAT)performed on the
[employer] platform.
Diagnostic Testing:
Physical Exam
-
HEENT: Normocephalic, Anicteric and Moist Mucous Membranes
Cardiovascular: S1/S2 and Regular Rhythm
Respiratory: Wheeze and Non-Labored Respirations
GI: Soft, Non Distended and Non Tender
Neurology: Awake, Alert, Oriented and No Motor Deficits
Skin: Warm, Dry and Good Color
General: Comfortable and Other (NAD)
Assessment
-
Patient is a 74-year-old male with previous history of seizure disorder, dementia, CVA presenting to the ER with cough, chest congestion. He was notably wheezing and hacking with minimal productive cough following dinner. He had similar
symptoms about 1 month ago. He has no prior known history of lung disease, he was a former smoker of about 2 packs/day for 20 years and quit 30 years ago. He denies to me any any symptoms of shortness of breath or wheezing. He does not know why
he is being evaluated for wheezing. We are consulted 02/03/25.
Wheezing
Acute onset SOB/cough following dinner
Snoring
Hyperglycemia
Conditions present [employer]
Diabetes mellitus type 2
Primary hypertension
Hyperlipidemia
Zoster without complications
Depression/anxiety
Alcoholism stopping alcohol use May 2020
Neurocognitive disorder
Gout
Former smoker--40 pack years, quit 30+ years ago
Colon polyp/Colonoscopy with polypectomy
Chronic anemia
GERD
Elevated double-stranded DNA and Sjogren's
Seizure 09/2023
History elevated antimyeloperoxidase antibody
CKD 3b
History of CVAs
Right rotator cuff surgery
Spinal/neck surgery
Left elbow surgery
Left shoulder RTC repair, biceps tenodesis and SAD (DOS 11/03/2018)
Tonsillectomy
Obesity, BMI 35
Plan
No oxygen was needed on admission, currently saturating >90% on RA
Prior history of lung disease is NOT noted--
Has never seen pulmonary in the past, denies any family history of known lung disease.
Former significant smoking history is noted, 40 PYs, quit 30+ years ago
He feels he may snore but has never been diagnosed with obstructive sleep apnea.
Suspect patient has COPD, underlying never diagnosed
CXR/CT obtained indicating no acute process
Will obtain bedside PFT for evaluation and start treatment if indicated
This can be managed further as OP given his overall relative stability
proBNP negative on admission
Prior ECHO results are reviewed indicating normal findings
Can repeat ECHO if PFTs are normal
Snoring is noted, recommend OP sleep study
Risk factors include CVA history, BMI
Weight loss measures recommended
Obesity likely contributing to respiratory symptoms
Will need outpatient pulmonary evaluation in our office for PFTs and 6MWT
Risk factors assessed for underlying sleep disordered breathing also noted, recommend outpatient PSG/sleep evaluation
Reviewed with patient
If no other significant findings, continued w/u can be completed as OP-- we will leave info in chart
Discharge planning otherwise per team
We will follow
Diagnostic Data
Chest X-Ray: 02/02/25- No evidence of active cardiopulmonary disease.
01/08/24- No active pulmonary process.
CT Scan: CHEST 02/03/25- No acute disease of the chest. No evidence of pulmonary embolus. Mild right lower lobe atelectasis versus scarring
Echo: 12/29/20- Normal left ventricular chamber size. Normal left ventricular systolic function. Left ventricular ejection fraction is 55-60% by visual assessment. Normal regional wall motion. Mild concentric left ventricular hypertrophy. No
significant valvular disease. No prior study available for comparison.
PFT's:
Reports and relevant images were personally reviewed.
Total time spent on this consultation __75__ minutes which includes review of history, physical exam, medications, laboratory data, personal review of imaging, extensive review of outpatient records, discussion with care team and respiratory therapy.
--- NOTE | 2025-02-03 14:20 | CM ---
Reviewed chart. Met with pt at bedside. IA completed. Pt lives with his in 2 story home. 3-4 steps at entrance to the home. BR on 1st floorNo hx of HC, VN or DME. Confirmed PCP, Rx and insurance. No insecurities identified
Plan: Home with no needs
PCP: Pillo Wilson
Rx: [facility]
[2025-02-03 17:25] LABS: Glucose - Point of Care 169 mg/dl (70-99)
[2025-02-03] MEDS: PROTONIX 40 MG PO (17:38)
[2025-02-03] MEDS: LOVENOX 40 MG SC (17:38)
[2025-02-03] MEDS: NOVOLOG FLEXPEN-LOW RESISTANCE 1 UNITS SC (17:38)
[2025-02-03] MEDS: ADVAIR HFA 230/21 MCG INHALER 2 PUFF INH (20:06)
[2025-02-03] MEDS: ARICEPT 5 MG PO (21:18)
[2025-02-03] MEDS: RISPERDAL 0.5 MG PO (21:18)
[2025-02-03 21:51] LABS: Glucose - Point of Care 200 mg/dl (70-99)
[2025-02-04 07:10] VITALS: BP 117/61
--- NOTE | 2025-02-04 07:53 | W.PN.HOSP.TC ---
Today's Communication/Plan
-
Discharge today
Assessment / Plan
Assessment / Plan
Physical Exam
General: Not in acute distress
HEENT: Moist mucous membranes
Respiratory: Scattered wheezes bilaterally - IMPROVED
Cardiac: S1/S2 and Regular Rhythm
GI: Soft, Non Tender, Non Distended and Normal Bowel Sounds
Musculoskeletal: No Cyanosis. 1+ edema in the bilateral lower extremities.
Neuro: Awake and Alert
Assessment/Plan
74 y/o male with past medical history significant for smoking (quit about 30 years ago), seizure disorder, hypertension, Type 2 Diabetes Mellitus, dementia and PRES who presented to [facility] ED complaining of cough and chest congestion. History was
obtained from patient and his at the bedside. Patient developed cough and chest congestion on 02/02/25 evening evening after dinner. He had audible wheezing and hacking, minimally productive cough. He presented to the ED for further
evaluation. Patient had similar symptoms about one month prior to presentation. He was seen by his PCP and treated for suspected pneumonia at that time with improvement in his symptoms. No formal diagnosis of emphysema/COPD.
Suspected COPD -- PFTs consistent with COPD
Progressive Wheezing, started about 6 months ago
Dyspnea on Exertion past 1 year -- but no chest pain reported
Former Smoker--40 pack years, quit 30+ years ago
- Persistent wheezing despite nebs in the ED thus far.
- CXR unremarkable. COVID / flu negative.
- IV steroids switched to PO steroids
- Follow for clinical improvement.
- proBNP negative/unremarkable
- Echo unremarkable
- CT Chest PE study without PE but did show some RLL atelectasis
- Per pulmonary communication today via [place] Text: continue current dose of Advair, home prn Albuterol and tapering prednisone over the next 10 days
- Follow-up with Dr. Lara outpatient
- No home oxygen needed on discharge
- Speech consult: as per Lucy Emmanuel, patient has no signs of oral/pharyngeal dysphagia. Continue regular/thin diet with reflux precautions. If concerned for silent aspiration please consult via video
swallow.
SIRS due to a non-infectious source
Snoring -- need outpatient sleep study with pulmonary
Trace Bilateral Lower Extremity Edema
-Follow-Up with primary care provider outpatient
CKD Stage 3a
Rising Creatinine
-Got CT Chest with contrast yesterday for PE study, today Cr slightly up at 1.5 and BUN 28.
-Today, I curbside consulted Dr. Iraheta (overed[facility] sewer) and he mentioned that as long as patient has a BMP tomorrow (the day after discharge), patient can be discharged
-Today, I spoke with patient's and patient's daughter over the phone, and advised them that I will give a script for BMP which they will need to take to an outpatient lab like [facility] or [facility] -- and I also advised them if the BUN/Cr are worse,
he should come back to the ER for further evaluation -- Dr. Iraheta confirmed that this is an appropriate management plan
-Today, I also checked with pharmacist Venus Tello and she said that no current or home med adjustments needed at this time -- but as outpatient, if GFR dips below 50, may consider dose adjustment for spironolactone from 12.5 mg daily to 12.5 mg
every other day.
-Patient's and daughter are in agreement with the above plan
Chronic Bilateral Hip Pain
-Has had x-rays outpatient, as per patient's daughter
-Will need orthopedics follow-up outpatient
Benign Hypertension
-Stable. Continue usual meds with holding parameters.
Hyperlipidemia
- Continue Atorvastatin
DM-II
- Stable. Continue AM glipizide.
- Follow glucose and cover with SSI as needed.
- Diabetic Diet
PRES diagnosed in 2020
History of mini ischemic and hemorrhagic CVA's
Senile Dementia
Seizure Disorder
- Stable. No recent seizure activity.
- Continue current med regimen including lacosamide, mood stabilizing agents, etc.
- Follow for any agitation / delirium during acute stay.
Depression/Anxiety
Zoster without complications
Alcoholism stopping alcohol use May 2020
Gout
Colon polyp/Colonoscopy with polypectomy
Chronic anemia
GERD
Elevated double-stranded DNA and Sjogren's
History elevated antimyeloperoxidase antibody
Right rotator cuff surgery
Spinal/neck surgery
Left elbow surgery
Left shoulder RTC repair, biceps tenodesis and SAD (DOS 11/03/2018)
Tonsillectomy
Obesity, BMI 35
DVT Prophylaxis: Lovenox
Code Status: Full
On 02/03/25, I spoke to patient's daughter Gloria, and I answered all of her questions and concerns to satisfaction.
On 02/04/25, I spoke over the phone to patient's daughter Gloria and patient's Theodora, and thoroughly explained everything to them, including that patient needs a repeat BMP tomorrow as outpatient.
More than 30 minutes spent in discharge including
Final examination of the patient
Summarizing hospital stay
Instructions for continuing care to all relevant caregivers
Preparation of discharge records, prescriptions, and referral forms
Total time spent (in minutes): 45
Anticipated Discharge: Today
Subjective/Interval History
-
Date of Service: February 04, 2025
Patient was seen and examined. He denied chest pain, shortness of breath, feeling of wheezing or any other symptoms or complaints. He strongly requested to go home today.
Objective Data
-
Labs:
Laboratory Results
02/04/25
07:32
WBC Pending
Hgb Pending
Hct Pending
Plt Count Pending
Sodium Pending
Potassium Pending
Chloride Pending
Carbon Dioxide Pending
BUN Pending
Creatinine Pending
Glucose Pending
Calcium Pending
Vital Signs:
Vital Signs
Temp Pulse Resp BP Pulse Ox
98.1 F 92 18 117/55 95
02/03/25 23:06 02/03/25 23:06 02/03/25 23:06 02/03/25 23:06 02/03/25 23:06
I&O
02/03/25 02/04/25 02/05/25
06:59 06:59 06:59
Intake Total 660 / 660
Output Total 100 / 100
Balance 560 / 560
[2025-02-04 07:57] LABS: Hematocrit 33.6 % (39.0-52.0); Hemoglobin 11.4 g/dL (13.0-18.0); Mean Corp Hgb Conc. 33.9 g/dL (33.0-37.0); Mean Corpuscular Volume 87.5 fL (80.0-94.0); Platelet Count 320 10^3/uL (130-400); Red Cell Dist. Width 13.2 % (11.5-14.5)
[2025-02-04 08:05] VITALS: BP 117/61
[2025-02-04] MEDS: ADVAIR HFA 230/21 MCG INHALER 2 PUFF INH (08:15)
[2025-02-04 08:25] LABS: Blood Urea Nitrogen 28 mg/dl (9-20); Calcium 10.2 mg/dl (8.4-10.2); Carbon Dioxide 22 mmol/L (22-30); Chloride 106 mmol/L (98-107); Estimated Creatinine Clearance 55 ml/min; Glucose 170 mg/dl (70-99); Potassium 4.6 mmol/L (3.5-5.1); Sodium 135 mmol/L (135-145); eGFR 48.85
[2025-02-04 08:27] LABS: Glucose - Point of Care 174 mg/dl (70-99)
[2025-02-04] MEDS: VITAMIN B1 100 MG PO (09:20)
[2025-02-04] MEDS: MUCINEX 600 MG PO (09:20)
[2025-02-04] MEDS: VIMPAT 150 MG PO (09:21)
[2025-02-04] MEDS: NORVASC 10 MG PO (09:21)
[2025-02-04] MEDS: DELTASONE 50 MG PO (09:26)
[2025-02-04] MEDS: GLUCOTROL XL (EXTENDED RELEASE) 2.5 MG PO (09:27)
[2025-02-04] MEDS: ZYLOPRIM 300 MG PO (09:27)
[2025-02-04] MEDS: LIPITOR 40 MG PO (09:27)
[2025-02-04] MEDS: CELEXA 20 MG PO (09:27)
[2025-02-04] MEDS: ALDACTONE 25 MG PO (09:27)
[2025-02-04] MEDS: NOVOLOG FLEXPEN-LOW RESISTANCE 1 UNITS SC (09:28)
[2025-02-04 09:39] VITALS: PULSE 94; O2SAT 98
[2025-02-04] MEDS: TYLENOL 650 MG PO ×2 (09:39→13:46)
[2025-02-04 09:40] VITALS: PULSE 94; O2SAT 98
--- NOTE | 2025-02-04 09:49 | PTOTSP ---
pt currently requires supervision to no assistance to complete simple ADLs, functional transfers, ambulation. pt demonstrates no acute OT needs at this time, recommend home with assistance as needed. will sign off.
--- NOTE | 2025-02-04 10:00 | PN.CDI ---
CDI
- -
CDI:
Physician Documentation Request
Admit Date: 02/03/25 02:27
Dear Doctor Roro,
Patient admitted for COPD.
Selected Entries
02/02/25
22:05 02/02/25
22:45 02/02/25
23:45
Pulse 104 96 98
02/02/25
22:16 02/02/25
22:30 02/03/25
01:15
Resp Rate 27 26 26
Please clarify which most accurately describes the patient:
SIRS due to a non-infectious source
Fever > 100.4 degrees F or hypothermia < 96.8 degrees F
Leukocytosis - WBC > 12,000 or leukopenia, WBC < 4,000 or > 10% bands
Tachycardia - > 90 beats per minute
Tachypnea - RR > 20 breaths per minute or PaCO2 < 32 mmHg
Source: Merck Manual 2013
Indicate the known or suspected etiology
Indicate if there is associated organ dysfunction, such as renal or respiratory failure
No systemic manifestations
Other
Use of terms such as suspected, likely, concern for, or probable (associated with a specific diagnosis that is being evaluated, monitored, or treated as if it exists) are acceptable and can be coded in the inpatient setting, when documented at the
time of discharge.
Thank you,
Dee Dee Vaughn RN, BSN
CDI Specialist
Available via [employer] text
Please use your independent medical judgment in providing your response.
[2025-02-04 11:50] LABS: Glucose - Point of Care 200 mg/dl (70-99)
--- NOTE | 2025-02-04 12:42 | W.PN.PUL3 ---
Today's Communication / Plan
-
Continue Advair twice a day
Add albuterol on an as needed basis
Recommend prednisone taper over next 10 days, stable for discharge from pulmonary standpoint
Outpatient follow-up with pulmonary clinic
Pulmonary team will sign off, please call as needed
Assessment
-
Patient is a 74-year-old male with previous history of seizure disorder, dementia, CVA presenting to the ER with cough, chest congestion. He was notably wheezing and hacking with minimal productive cough following dinner. He had similar
symptoms about 1 month ago. He has no prior known history of lung disease, he was a former smoker of about 2 packs/day for 20 years and quit 30 years ago. He denies to me any any symptoms of shortness of breath or wheezing. He does not know why
he is being evaluated for wheezing. We are consulted 02/03/25.
Acute COPD exacerbation r
Snoring
Hyperglycemia
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
Diabetes mellitus type 2
Primary hypertension
Hyperlipidemia
Zoster without complications
Depression/anxiety
Alcoholism stopping alcohol use May 2020
Neurocognitive disorder
Gout
Former smoker--40 pack years, quit 30+ years ago
Colon polyp/Colonoscopy with polypectomy
Chronic anemia
GERD
Elevated double-stranded DNA and Sjogren's
Seizure 09/2023
History elevated antimyeloperoxidase antibody
CKD 3b
History of CVAs
Right rotator cuff surgery
Spinal/neck surgery
Left elbow surgery
Left shoulder RTC repair, biceps tenodesis and SAD (DOS 11/03/2018)
Tonsillectomy
Obesity, BMI 35
Plan
No oxygen was needed on admission, currently saturating >90% on RA
Prior history of lung disease is NOT noted--
Has never seen pulmonary in the past, denies any family history of known lung disease.
Former significant smoking history is noted, 40 PYs, quit 30+ years ago
He feels he may snore but has never been diagnosed with obstructive sleep apnea.
Current spirometry suggestive of moderate obstruction, consistent with COPD/asthma with positive bronchodilator response
CXR/CT obtained indicating no acute process
Currently faint end expiratory wheezing on exam.
Continue Advair twice a day as scheduled, can be discharged home on Advair along with as needed albuterol and tapering prednisone over next 10 days. Will need outpatient follow-up with pulmonary clinic for pulmonary function testing. Please assess
for need for home oxygen prior to discharge
proBNP negative on admission
Prior ECHO results are reviewed indicating normal findings
Snoring is noted, recommend OP sleep study
Risk factors include CVA history, BMI
Weight loss measures recommended
Obesity likely contributing to respiratory symptoms
Will need outpatient pulmonary evaluation in our office for PFTs and 6MWT
Risk factors assessed for underlying sleep disordered breathing also noted, recommend outpatient PSG/sleep evaluation
Reviewed with patient
Diagnostic Data
Chest X-Ray: 02/02/25- No evidence of active cardiopulmonary disease.
01/08/24- No active pulmonary process.
CT Scan: CHEST 02/03/25- No acute disease of the chest. No evidence of pulmonary embolus. Mild right lower lobe atelectasis versus scarring
Echo: 12/29/20- Normal left ventricular chamber size. Normal left ventricular systolic function. Left ventricular ejection fraction is 55-60% by visual assessment. Normal regional wall motion. Mild concentric left ventricular hypertrophy. No
significant valvular disease. No prior study available for comparison.
PFT's:
Reports and relevant images were personally reviewed.
Total time spent on this consultation __38__ minutes which includes review of history, physical exam, medications, laboratory data, personal review of imaging, extensive review of outpatient records, discussion with care team and respiratory therapy.
Subjective Data
-
Date of Service:
Date of Service: February 04, 2025
Subjective:
Patient comfortably lying in bed in no acute distress
Review of Systems
Genitourinary: Other (All 14 systems reviewed and negative except as stated above in the history of present illness. Feels ready to go home)
Objective Data
Data Reviewed
Vital Signs / I&O / Oxygen:
Vital Signs
Temp Pulse Resp BP Pulse Ox
97.5 F 89 16 117/61 95
02/04/25 07:10 02/04/25 09:21 02/04/25 08:16 02/04/25 09:21 02/04/25 11:11
Intake and Output
02/03/25 02/04/25 02/05/25
06:59 06:59 06:59
Intake Total 660 / 660
Output Total 100 / 100
Balance 560 / 560
SaO2 95
Physical Exam
General: Comfortable
HEENT: Normocephalic
Cardiovascular: S1-S2
Respiratory: Clear and Non-Labored Respirations
GI: Soft and Non Distended
Neurology: Awake and Alert
Skin: Warm
Labs/Micro/Reports
Lab Data
02/04/25 07:32
02/04/25 07:32
Microbiology
02/02/25 22:32 Nasal Swab Influenza Types A & B (HERB) - Final
Negative for Influenza A & B, NAAT
Negative results must be combined with clinical observations
and patient history.
Nucleic Acid Amplification test (NAAT)performed on the
Fast[employer] platform.
[2025-02-04] MEDS: NOVOLOG FLEXPEN-LOW RESISTANCE 2 UNITS SC (12:57)
--- NOTE | 2025-02-04 14:08 | CM ---
Chart reviewed. d/c plan in place
Plan_ Home no needs
[2025-02-04 15:27] VITALS: BP 131/63
[2025-02-04 16:17] LABS: Glucose - Point of Care 259 mg/dl (70-99)
--- NOTE | 2025-02-04 16:24 | W.DCSUMMARY ---
Discharge Summary
Discharge Data
Date of Admission: 02/03/25
Date of Discharge: 02/04/25
Total time spent discharging patient (in min): 45
-
Pending Results: No
Hospital Course
74 y/o male with past medical history significant for smoking history (but quit smoking about 30 years ago), seizure disorder, dementia, PRES as well as additional history listed in the Discharge Diagnosis/Procedures below, presented with cough,
chest congestion and wheezing. About 1 month prior, patient's family reported that patient had similar symptoms and was treated for pneumonia. Patient did not have a history of COPD or Asthma. Patient was started on intravenous steroids and
bronchodilators. Patient's case was discussed multiple times with patient's as well as patient's daughter, and they agreed with CT Chest with contrast to check for any pathology, as well as echocardiogram. CT Chest Pulmonary Embolism study
showed that patient had no pulmonary embolism, but did have some atelectasis. Patient's echocardiogram was also unremarkable. Media Relations Coordinator was consulted for pulmonary function tests (PFT) to see whether patient had asthma/COPD given continued
wheezing, and they noted that there was moderate obstruction noted on PFT, consistent with moderate Chronic Obstructive Pulmonary Disease (COPD). Patient was transitioned to oral steroid taper, as well as Advair twice per day. Patient said he felt
fine, and he stated he wanted to go home. Home oxygen assessment test was performed and it was determined patient did not need any home oxygen. It was noted that patient would need outpatient pulmonary evaluation in [facility] pulmonary office in
[place] for PFTs and 6MWT (six-minute walk test). It was also noted that patient had risk factors for underlying sleep disordered breathing and outpatient PSG/sleep evaluation was recommended. Speech therapist also evaluated patient and noted
that patient had no aspiration.
It was noted that patient had CKD Stage 3a and patient had, on the day of discharge, higher BUN and Creatinine than the day prior. Hospitalist discussed case with on-call sewer and inspector, discussed possibility of contrast nephropathy, and it was
decided together that as long as patient has a BMP tomorrow (the day after discharge), patient can be discharged with close outpatient follow-up. Patient was given a script for Basic Metabolic Panel at the time of discharge. Patient's and
daughter were advised that if the lab numbers looked worse, that they should contact patient's primary care provider right away, but if the primary care provider was not available, then to come right away to the emergency room for evaluation. On the
day of discharge, hospitalist also checked with pharmacist Venus Tello and she said that no current or home med adjustments needed on the day of discharge. Patient, his and his daughter were in agreement for discharge with the above plan.
Discharge Plan
-
Patient Disposition: Home (Routine Discharge)
Discharge Diagnosis/Procedures: Leukocytosis - Secondary to Steroids
Suspected COPD -- Pulmonary Function Tests consistent with COPD
Progressive Wheezing, started about 6 months ago
Dyspnea on Exertion past 1 year -- but no chest pain reported
Former Smoker--40 pack years, quit 30+ years ago
Snoring -- need outpatient sleep study with pulmonary
Trace Bilateral Lower Extremity Edema
CKD Stage 3a
Rising Creatinine -- Contrast Induced Nephropathy? from CT on 02/03/25?
Chronic Bilateral Hip Pain
Benign Hypertension
Hyperlipidemia
Type 2 Diabetes Mellitus
PRES diagnosed in 2020
History of mini ischemic and hemorrhagic CVA's
Senile Dementia
Seizure Disorder
Depression/Anxiety
Zoster without complications
Alcoholism stopping alcohol use May 2020
Gout
Colon polyp/Colonoscopy with polypectomy
Chronic anemia
GERD
Elevated double-stranded DNA and Sjogren's
History elevated antimyeloperoxidase antibody
Right rotator cuff surgery
Spinal/neck surgery
Left elbow surgery
Left shoulder RTC repair, biceps tenodesis and SAD (DOS 11/03/2018)
Tonsillectomy
Obesity, BMI 35

Transthoracic Echocardiogram Summary (as per radiologist's report):
'SUMMARY
1. No significant valve disease.
2. No significant change from prior on 12/29/20.
3. Technically difficult study with Lumason used to enhance endocardial border definition. Normal left ventricular size, wall thickness and systolic function. Left ventricular ejection fraction is 60-65% by Godwin's method of discs. Normal
diastolic function.'

CT Chest (as per radiologist's report):
'Scanning parameters: CT arteriography of the chest with intravenous contrast material was obtained. 3-D reconstructed coronal imaging of the chest was performed as well. Automated exposure control was used.
Comparison examination: Chest x-ray 02/02/2025
FINDINGS:
There is no pulmonary embolism.
There is no aortic dissection.
There is no pneumothorax.
There are no abnormal pleural or parenchymal masses.
There is no pleural effusion.
There is no significant parenchymal airspace disease.
The mediastinum is normal.
There is no hilar or mediastinal lymphadenopathy.
There is no axillary lymphadenopathy.
Osseous structures show moderate degenerative disease.
There is mild right lower lobe atelectasis versus scarring.
IMPRESSION:
No acute disease of the chest. No evidence of pulmonary embolus.
Mild right lower lobe atelectasis versus scarring
If the patient has emphysema, patient should be assessed for an annual low dose lung cancer CT program, as pulmonary emphysema is an independent risk factor for lung cancer.'
Condition: Good
Diet: Diabetic, Carb Controlled
Blood Work: Check Basic Metabolic Panel tomorrow (as we discussed)
Activity Restrictions/Additional Instructions:
Check your Basic Metabolic Panel (script has been provided which you can take to an outpatient lab like [facility] or [facility] at a branch that is open on Saturdays) to check your renal function tomorrow 02/05/25, if your creatinine goes above 1.8, please
return to the emergency room -- otherwise please follow-up with your outpatient physician on February 08, 2025.
Follow Aspiration Precautions with any oral intake.
Given your snoring, you need outpatient sleep study with pulmonary.
Discuss with your primary care provider the possibility of doing bilateral lower extremity ultrasound given the mild edema in your bilateral lower extremities.
Instructions: High blood sugar in adults - ED (DC)
Referrals:
Lorenzo Najera PA-C [Specified Professional Personl, Orthopedics] - in one to two weeks
Referral Note: Bilateral Hip Pain -- needs evaluation
Jessica Lara DO [Active, Pulmonary Medicine] - in four to six weeks
Referral Note: PFT
Pillo Wilson MD [Family Provider, Family Practice]
Additional Discharge Medication Instructions: Fluticasone-Salmeterol and Prednisone Taper are new medications.
Prescriptions:
New
fluticasone propion-salmeterol 230-21 mcg/actuation Hfa Aerosol Inhaler
2 puff inhalation R BID Qty: 12 1RF
prednisone 10 mg tablet
10 mg PO DIRECTED Qty: 26 0RF
Rx Instructions:
Starting on 02/05/25: 50 mg 1 day; 40 mg/day x2 days; 30 mg/day x2 days; 20 mg/day x2 days; 10 mg /day x3 days
Continued
atorvastatin 40 MG tablet
40 mg PO DAILY
allopurinol 300 MG tablet
300 mg PO DAILY
thiamine HCl (vitamin B1) 100 MG tablet
100 mg PO DAILY
spironolactone 25 MG tablet
25 mg PO DAILY
calcium carbonate 600 MG tablet
1,200 mg PO DAILY
omeprazole 40 MG capsule,delayed release(DR/EC)
40 mg PO QPM
acetaminophen [Tylenol Extra Strength] 500 mg Tablet
500 mg PO DAILYPRN PRN (Reason: mild pain)
citalopram 20 mg Tablet
20 mg PO DAILY
amlodipine 10 mg Tablet
10 mg PO DAILY
glipizide 2.5 mg Tablet Extended Release 24hr
2.5 mg PO DAILY
cholecalciferol (vitamin D3) 50 mcg (2,000 unit) Tablet
50 mcg PO DAILY
risperidone 0.5 MG tablet
0.5 mg PO HS
cyanocobalamin (vitamin B-12) 1,000 MCG tablet
1,000 mcg PO DAILY
magnesium oxide 400 MG tablet
400 mg PO DAILY
albuterol sulfate 90 mcg/actuation Hfa Aerosol Inhaler
1 inh INHALATION R Q4HPRN PRN (Reason: shortness of breath)
donepezil 5 mg tablet
5 mg PO HS
lacosamide 150 mg tablet
150 mg PO BID
Discharge Orders:
Discharge Patient (As Directed); Ordered 02/04/25
Ordered By: Ugo Read
Discharge Date and Time
Discharge Date/Time: 02/04/25 17:22
Print Language: PORTUGUESE
--- NOTE | 2025-02-05 13:08 | W.PN.UPDATE ---
Update Note
Progress Note Update
On February 05, 2025, I received at 11:54 AM a [place] [employer] communication from community center worker Opal Louis, saying that patient's Theodora came in and wanted to speak to me if possible, and that Theodora was unable to obtain patient's Advair Inhaler
and had other questions. At 11:55 am on February 05, 2025, I called patient's Theodora at her cell phone number and she answered the phone, and we discussed patient's case. Theodora said that on the night of February 04, 2025 when she went to picker machine operator
patient's medications from his pharmacy, the pharmacist at the [facility] in [facility] in [place], [place], said they did not have the patient's inhaler (which was prescribed at the the time of hospital discharge) in stock, and that it was also expensive
at hundreds of dollars she would need to pay out of pocket. Theodora also mentioned that she took the patient to [facility] on February 05, 2025 morning and had the labs done (e.g. BMP -- for which a script was provided on discharge). She understood that
the results may be delayed by a few days given the holiday weekend. I advised Theodora that she can go to the [facility] website to check to see the results once they become available.
On February 05, 2025, I then contacted (via [place] [employer]) pulmonary on-call Dr. Lara and case assistant in the hospital to see what can be done about the cost, and they recommended GoodRx. I then called the [facility] in [facility] in [place], [place], and spoke
with a pharmacist about the patient and the pharmacist said that the generic Advair is not covered by insurance but that the brand name is cover (but it would still cost more than $300 out of pocket, after being covered). The pharmacist told me
GoodRx would not make a difference in the out of pocket cost for the medication, and that many of the other COPD inhalers are also in the hundreds of dollars out of pocket cost. The pharmacist also told me that they actually have the brand name
version of Advair available in the pharmacy on February 05, 2025, it would cost the patient $305. I asked her to process the medication for the patient so that patient can get it right away.
I then called again patient's Theodora at 12:51 PM, and at that time she said she was at [facility] in [facility] in [place], [place] (same [facility] mentioned above), and she was paying the $305 for the Advair, and picking up the Advair.
Patient's Theodora also told me patient was feeling tired and irritable on February 05, 2025, but not worse from before. I told her that if she has any doubts on whether or not the patient is doing okay, that she should immediately bring the patient
to the emergency room, to be on the safe side. Theodora expressed understanding. I also recommended to Theodora that she obtain a pulse oximeter and blood pressure cuff from the pharmacy as well, and the pharmacists there could help her in purchasing
blood pressure cuff and pulse oximeter. I answered to satisfaction all of Theodora's questions and concerns.
== END 2025-02-04 17:22 | disposition home or self-care (01) | DRG 191 ==
LOC: 4 WEST ACU 02:27
PROVIDERS: Physician Assistant; ADMITTING PHYSICIAN Hospitalist; ATTENDING PHYSICIAN Hospitalist; CONSULT PHYSICIAN Internal Medicine; EMERGENCY PHYSICIAN Student in an Organized Health Care Education/Training Program; FAMILY PHYSICIAN Family Medicine
DX: J44.1 Chronic obstructive pulmonary disease with (acute) exacerbation (principal); F03.93 Unspecified dementia, unspecified severity, with mood disturbance; R65.10 Systemic inflammatory response syndrome (SIRS) of non-infectious origin without acute organ dysfunction; F03.94 Unspecified dementia, unspecified severity, with anxiety; I12.9 Hypertensive chronic kidney disease with stage 1 through stage 4 chronic kidney disease, or unspecified chronic kidney disease; E11.22 Type 2 diabetes mellitus with diabetic chronic kidney disease; D63.1 Anemia in chronic kidney disease; G40.909 Epilepsy, unspecified, not intractable, without status epilepticus; F32.A Depression, unspecified; K22.70 Barrett's esophagus without dysplasia; K21.9 Gastro-esophageal reflux disease without esophagitis; E66.9 Obesity, unspecified; N18.31 Chronic kidney disease, stage 3a; G89.29 Other chronic pain; T38.0X5A Adverse effect of glucocorticoids and synthetic analogues, initial encounter; D72.828 Other elevated white blood cell count; E11.65 Type 2 diabetes mellitus with hyperglycemia; E78.00 Pure hypercholesterolemia, unspecified; M25.552 Pain in left hip; M25.551 Pain in right hip; Z87.891 Personal history of nicotine dependence; Z87.01 Personal history of pneumonia (recurrent); Z86.73 Personal history of transient ischemic attack (TIA), and cerebral infarction without residual deficits; Z11.52 Encounter for screening for COVID-19; Z79.899 Other long term (current) drug therapy; Z79.84 Long term (current) use of oral hypoglycemic drugs; Z68.35 Body mass index [BMI] 35.0-35.9, adult
CPT/HCPCS: 71045; 71275; 80048; 82805; 82962; 83036; 83880; 84484; 85025; 85027; 87502; 87811; 92610; 93005; 93306; 94640; 96374; 97161; 97166; 99285; Q9950; Q9967

== ENCOUNTER 2025-02-13 07:28 | Emergency (ER) | payer MEDICARE, OTHER, SELFPAY ==
[2025-02-13 07:31] VITALS: BP 150/69
--- NOTE | 2025-02-13 08:17 | ED.CVA ---
History of Present Illness
General
Chief Complaint: CVA/TIA Symptoms
Source: patient, records and spouse
Exam Limitations: none
Time Seen by Provider: 02/13/25 07:47
Nursing documentation reviewed up to this point in time: agreed with except (Not a new issue, no facial palsy appreciated)
Onset of Stroke Symptoms
Onset of symptoms known: No
Time pt last seen normal is known: No
History of Present Illness
History of Present Illness:
74-year-old male presents with intermittent spasms related to pain in his neck this is not a new issue states he had surgery previously, which relieved his symptoms, has been in the hospital previously the family states, no slurred speech no
headache no arm or leg weakness, unclear if he is able to control the spasms in front of me best described as looking like he was startled unclear if he is able to control the spells,
Past History
Past History
ED Past Medical History: HTN, Hypercholesterolemia, NIDDM, Psychiatric (Anxiety, Dementia) and Other (Anemia, diabetes, posterior reversible encephalopathy syndrome December 2020)
ED Past Surgical History: Orthopedic and Tonsilectomy
Social History
Tobacco: Former smoker
Alcohol: Former
Drug: None
Personal:
Living: with family
Employment: Employed
Family History
Family History: Other (Arthritis)
Phy Exam
Physical Exam
Physical Exam:
Physical Exam
General: no apparent distress, not acutely ill
Neck: No jaundice
Heart: s1/s2 regular rate and rhythm, no murmur. equal radial pulses.
Lungs: no acute respiratory distress.
Abdomen: Not
Neuro: alert and oriented. no focal neurological deficits
Skin: no rash
Psychiatric: Somewhat dismissive affect, cooperative
Extremities: no edema.
Course
Orders/Labs/Results
Orders:
Orders
02/13/25 07:55
CT Head & Neck Angio W/wo IV Urgent
Comment:
Reason For Exam: pain prior cva seizure
02/13/25 07:56
Electrocardiogram (*1) Stat
Reason for Study: Other
Other Reason for Exam: neuro symptoms
EKG- Treatment ONCE
diazePAM [Valium Injection] 5 mg IV NOW STA
02/13/25 08:03
Complete Blood Count/With Diff Urgent
Comprehensive Metabolic Panel Urgent
Erythrocyte Sed Rate Urgent
Abnormal Lab Results
02/13/25
08:03
RBC 4.07 L 10^6/uL
(4.70-6.10)
Hgb 12.5 L g/dL
(13.0-18.0)
Hct 35.8 L %
(39.0-52.0)
MPV 10.7 H fL
(7.4-10.4)
Abs Immat Gran (auto) 0.1 H 10^3/uL
(0-0.05)
Absolute Monos (auto) 0.7 H 10^3/uL
(0.1-0.6)
Immature Gran % 0.9 H %
(0-0.5)
ESR 43 H mm/hour
(0-20)
Creatinine 1.4 H mg/dL
(0.7-1.3)
Glucose 159 H mg/dl
(70-99)
ALT 66 H U/L
(0-50)
02/13/25 08:03
02/13/25 08:03
Vital Signs
Initial and Last Documented VS:
Initial Vital Signs
Temp Pulse Resp BP Pulse Ox
98.0 F 78 16 150/69 98
02/13/25 07:31 02/13/25 07:31 02/13/25 07:31 02/13/25 07:31 02/13/25 07:31
Last Documented Vital Signs
Temp Pulse Resp BP Pulse Ox
98.0 F 78 16 150/69 98
02/13/25 07:31 02/13/25 07:31 02/13/25 07:31 02/13/25 07:02/13/25 08:17
MDM/Problems Addressed
Differential Diagnosis Includes:
Muscle spasm psychosomatic seizure spasm CVA less likely
MDM/Problems Addressed:
Neck pain intermittent spasm
Chronic conditions affecting care:
Seizures stroke neck pain
Acute Exacerbation and/or Progression of Chronic Illness:
Seizure stroke neck pain dementia
*Radiology
Radiology exam reviewed: radiology read reviewed
*Pulse Oximetry
SaO2: 98
Oxygen Mode of Delivery: Room air
Patient hypoxic: no
*EKG
Interpreted by ED Provider?: Yes
Interpretation: normal
Comparison EKG: no comparison EKG present
Heart Rate: 78
Rate: normal
Rhythm: sinus
Ischemia: non-specific ST changes
*Radio Electrician Interpretation
Rate: normal
Interpretation: normal
Heart Rate: 78
Rhythm: sinus
*Critical Care Note
Total Time (30-74mins, 75-104mins- exclusive of procedures): Not Applicable
Update Note
Update Note:
Update--- correction from the nurses note, patient and spouse both admit that this is not a new issue did have some increased frequency today, has neck pain which again is not a new issue underwent surgery previously, prior records briefly reviewed
has dementia prior stroke seizure previously will need to confirm what meds he is on now
Reviewed with patient after some Valium he is feeling much better no more pain in his neck no more episodes of spasms, I did review his meds he has been taking his Vimpat, if he remains stable will discharge with a short course of Valium as needed,
of note he would like to leave as soon as possible he has to go to a christening for his grandchild at a local christianity
10:[address] report noted, patient had 1 or 2 episodes that he reports are 'lurching' spells, which are not new he does not appear to be out of control them unclear if they are partial seizures, myoclonic jerks, psychosomatic, idiopathic etc.
I did offer him evaluation by neurologist here, he appeared appreciative that although again he and his need to go to a local christianity for christening of the grandchild, they will consider coming back if his symptoms persist or worsen
ED Attending Note
-
Portions of this chart may have been created with voice recognition software.� Occasional wrong word or��sound alike� substitutions may have occurred due to the inherent limitations of voice recognition software.
Discharge Plan
Departure
Patient Disposition: Home (Routine Discharge)
Date of Disposition: 02/13/25
Time of Disposition: 10:24
Patient with high blood pressure during this ER visit?: No
Condition: Good
Discharge Problem:
Neck pain
Instructions: Paresthesia (DC)
Prescriptions:
New
diazepam [Valium] 5 mg tablet
5 mg PO BID PRN (Reason: muscle spasm) Qty: 20 0RF
No Action
atorvastatin 40 MG tablet
40 mg PO DAILY
allopurinol 300 MG tablet
300 mg PO DAILY
thiamine HCl (vitamin B1) 100 MG tablet
100 mg PO DAILY
spironolactone 25 MG tablet
25 mg PO DAILY
calcium carbonate 600 MG tablet
1,200 mg PO DAILY
omeprazole 40 MG capsule,delayed release(DR/EC)
40 mg PO QPM
acetaminophen [Tylenol Extra Strength] 500 mg Tablet
500 mg PO DAILYPRN PRN (Reason: mild pain)
citalopram 20 mg Tablet
20 mg PO DAILY
amlodipine 10 mg Tablet
10 mg PO DAILY
glipizide 2.5 mg Tablet Extended Release 24hr
2.5 mg PO DAILY
cholecalciferol (vitamin D3) 50 mcg (2,000 unit) Tablet
50 mcg PO DAILY
risperidone 0.5 MG tablet
0.5 mg PO HS
cyanocobalamin (vitamin B-12) 1,000 MCG tablet
1,000 mcg PO DAILY
magnesium oxide 400 MG tablet
400 mg PO DAILY
albuterol sulfate 90 mcg/actuation Hfa Aerosol Inhaler
1 inh INHALATION R Q4HPRN PRN (Reason: shortness of breath)
donepezil 5 mg tablet
5 mg PO HS
lacosamide 150 mg tablet
150 mg PO BID
fluticasone propion-salmeterol 230-21 mcg/actuation Hfa Aerosol Inhaler
2 puff inhalation R BID Qty: 12 1RF
prednisone 10 mg tablet
10 mg PO DIRECTED Qty: 26 0RF
Rx Instructions:
Starting on 02/05/25: 50 mg 1 day; 40 mg/day x2 days; 30 mg/day x2 days; 20 mg/day x2 days; 10 mg /day x3 days
Referrals:
Pillo Wilson MD [Family Provider, Family Practice] - Follow up in 2-3 days
Interventions
Interventions:
*Risk Screen - Suicide Last Done: 02/13/25 07:31
*Neglect/Abuse Screening Last Done: 02/13/25 07:31
Discharge Date and Time
Print Language: MICRONESIAN
[2025-02-13] MEDS: VALIUM INJECTION 5 MG IV (08:24)
[2025-02-13 08:50] LABS: Hematocrit 35.8 % (39.0-52.0); Hemoglobin 12.5 g/dL (13.0-18.0); Mean Corp Hgb Conc. 34.9 g/dL (33.0-37.0); Mean Corpuscular Volume 88.0 fL (80.0-94.0); Nucleated Red Blood Cells % 0 % (-); Platelet Count 252 10^3/uL (130-400); Red Cell Dist. Width 12.9 % (11.5-14.5)
[2025-02-13 08:51] LABS: ALT (SGPT) 66 U/L (0-50); AST (SGOT) 25 U/L (17-59); Albumin 4.2 g/dl (3.5-5.0); Alkaline Phosphatase 69 U/L (38-126); Blood Urea Nitrogen 13 mg/dl (9-20); Calcium 9.5 mg/dl (8.4-10.2); Carbon Dioxide 23 mmol/L (22-30); Chloride 107 mmol/L (98-107); Glucose 159 mg/dl (70-99); Potassium 3.7 mmol/L (3.5-5.1); Sodium 136 mmol/L (135-145); Total Protein 6.9 g/dl (6.3-8.2); eGFR 53.07
== END 2025-02-13 10:43 | disposition home or self-care (01) ==
LOC: EMR 07:28
PROVIDERS: EMERGENCY PHYSICIAN Emergency Medicine; FAMILY PHYSICIAN Family Medicine
DX: M54.2 Cervicalgia (principal); I10 Essential (primary) hypertension; E11.9 Type 2 diabetes mellitus without complications; E78.00 Pure hypercholesterolemia, unspecified; F03.94 Unspecified dementia, unspecified severity, with anxiety; Z82.61 Family history of arthritis; Z86.73 Personal history of transient ischemic attack (TIA), and cerebral infarction without residual deficits; Z87.891 Personal history of nicotine dependence
CPT/HCPCS: 99284; 96374; 70496; 70498; 80053; 85025; 85652; 93005; Q9967

== ENCOUNTER → 2025-04-12 19:50 | Outpatient (REF) | payer MEDICARE, OTHER, SELFPAY | LOC: PAVMRI 19:50 | PROVIDERS: ATTENDING PHYSICIAN Physician Assistant; FAMILY PHYSICIAN Family Medicine | DX: M54.12 Radiculopathy, cervical region (principal) | CPT/HCPCS: 72141 ==